=== PATIENT | male | born 1935 | race Caucasian/White ===

== ENCOUNTER 2016-04-02 15:23 | Inpatient (IN) | payer OTHER ==
--- NOTE | 2016-04-02 17:16 | Diag Imaging Result Document ---
PROCEDURE NAME: CHEST-PORTABLE - 04/02/2016 SINGLE FRONTAL RADIOGRAPH OF THE CHEST: COMPARISON: 03/18/2016. FINDINGS: Right PICC line is in approximately stable position. There is a small calcified granuloma at the left lung base. The lungs are essentially clear, otherwise. There is no definite pleural fluid collection. The patient is rotated toward the right. Cardiac silhouette is somewhat prominent but stable. IMPRESSION: Stable chest.
[2016-04-02 17:24] LABS: MANUAL DIFF NEEDED? NO
[2016-04-02 17:24] LABS: URINE SOURCE CATH
[2016-04-02 17:32] LABS: BASO% 0.2 % (0.0-0.8); EOS# 0.07 X1000 (0.0-0.7); EOS% 0.8 % (0.0-10.0); HEMATOCRIT 35.6 % (42.0-52.0); IMM GRAN# 0.03 X1000 (0.0-0.04); IMM GRAN% 0.4 % (0.0-0.5); LYMPH# 1.76 X1000 (1.2-3.4); LYMPH% 20.6 % (20.5-51.1); MCH 30.5 PG (27-31); MCHC 33.7 g/dL (33-37); MCV 90.6 FL (81-99); MONO# 0.91 X1000 (0.11-0.59); MONO% 10.6 % (1.7-9.3); MPV 9.9 FL (7.4-10.4); NEUT% 67.4 % (42.2-75.2); PLT 212 X1000 (130-400); RBC 3.93 XMIL (4.7-6.1)
[2016-04-02 17:32] LABS: BILIRUBIN URINE NEGATIVE (NEGATIVE); BLOOD URINE NEGATIVE (NEGATIVE); COLOR YELLOW; GLUCOSE URINE NEGATIVE (NEGATIVE); LEUKOCYTES URINE TRACE (NEGATIVE); NITRITE URINE NEGATIVE (NEGATIVE); PROTEIN URINE NEGATIVE (NEGATIVE); SP GRAVITY URINE 1.013; TURBIDITY URINE CLEAR (CLEAR); UROBILINOGEN URINE NORMAL (NORMAL)
[2016-04-02 17:33] LABS: URINE MICRO REVIEW NEEDED? YES
[2016-04-02 17:36] LABS: UR EPITHELIAL CELLS >10 /HPF (<10); URINE BACTERIA NEGATIVE /HPF; URINE CULTURE NEEDED? YES; URINE RBC <10 /HPF (<10)
[2016-04-02 17:52] LABS: ALBUMIN 3.5 g/dL (3.5-5.0); CALCIUM 9.2 mg/dL (8.8-10.2); POTASSIUM 4.5 mmol/L (3.5-5.1); TOTAL BILIRUBIN 0.64 mg/dL (0.20-1.00); TOTAL PROTEIN 6.3 g/dL (6.3-8.3)
--- NOTE | 2016-04-02 17:53 | ED EKG INTERP ---
EKG Interpretation - EKG Time of EKG reading by physician:: 17:04 EKG Read and Signed by:: Verna Black EKG Interpretation (*Must complete 3 of following elements*): Abnormal Rate: 106 Rhythm: unsual P axis, possible ectopic atrial tachycardia QRS: normal ST Wave: non-specific ST changes <Lucho Malin - Last Filed: 04/02/16 17:52> Attestation - Scribe Verification/Attestation Scribe:: Lucho Malin Acting as Scribe for:: Verna Black Scribe documention review:: This chart was documented by a scribe and accurately reflects the service the provider performed and the decisions made by the provider. <Lucho Malin - Last Filed: 04/02/16 17:52> Physician Attestation - Physician Attestation I, the provider, attest to the following statement:: Verna Black Physician documentation Attestation:: This documentation recorded by the scribe accurately reflects the service I personally performed and the decisions made by me. <Lucho Malin - Last Filed: 04/02/16 17:52> - Physician Attestation I, the provider, attest to the following statement:: Daphney Dietrich Physician documentation Attestation:: This documentation recorded by the scribe accurately reflects the service I personally performed and the decisions made by me. <Daphney Dietrich - Last Filed: 04/02/16 18:44>
[2016-04-02 17:55] LABS: URINE CASTS NONE SEEN; URINE CRYSTALS NONE SEEN
[2016-04-02 17:56] LABS: URINE SMALL ROUND CELLS NONE SEEN
[2016-04-02] MEDS ORDERED: NS 500 ML IV ONE (18:10)
--- NOTE | 2016-04-02 20:28 | PROVIDER DOCUMENTATION ---
HPI-Abdominal Pain/GI Problem - General Chief Complaint: N/V/D Stated Complaint: UPPER ABD PAIN,DIARRHEA Time Seen by Provider: 04/02/16 16:22 Source: patient, family Allergies/Adverse Reactions: Patient Allergies Allergy/AdvReac Type Severity Reaction Status Date / Time ciprofloxacin Allergy HIVES Verified 04/02/16 16:29 Home Medications: Home Medication List Medication Instructions Recorded Confirmed Last Taken Type Apixaban [Eliquis] 2.5 mg PO BID 03/26/16 04/02/16 Unknown History Carvedilol 6.25 mg PO BID 03/26/16 04/02/16 Unknown History Citalopram [Celexa] 40 mg PO DAILY 03/26/16 04/02/16 Unknown History Donepezil HCl 10 mg PO DAILY 03/26/16 04/02/16 Unknown History Metformin HCl 1,000 mg PO BID 03/26/16 04/02/16 Unknown History Ranitidine [Zantac] 150 mg PO DAILY 03/26/16 04/02/16 Unknown History SIMVAstatin [Zocor] 40 mg PO QHS 03/26/16 04/02/16 Unknown History - History of Present Illness-ABD Nature of Presenting Problems: 80 yo with urostomy after bladder removal for bladder cancer. Has hx of recurrent infections and recently received several week course of IV antibiotics - zosyn to ertapenem. Recently stopped IV antibiotics and now complaining of increasing RUQ abdominal pain. Family also concerned about patients inability to manage on his own. Abdominal Pain Onset Location: reports: RUQ Quality of Pain: reports: aching Severity in ED: reports: moderate Onset/Duration: reports: 1 week ago Timing: reports: still present Activities at Onset: reports: none Exposure to sick contacts?: No Associated Symptoms: reports: chest pain, diarrhea, nausea, vomiting Last BM: this morning (loose stool daily) Dark Stools Present?: reports: black (occasionally dark) Emesis Description: reports: other (one episode daily) Review of Systems - Adult - REVIEW OF SYSTEMS - ADULT Constitutional: reports: fatique, other (weakness) Eyes: reports: no symptoms reported Ears, Nose, Mouth & Throat: reports: no symptoms reported Cardiovascular: reports: irregular heart rate Respiratory: reports: no symptoms reported Gastrointestinal: reports: abdominal pain (RUQ), diarrhea, nausea, vomiting Genitourinary: reports: see HPI Musculoskeletal: reports: no symptoms reported Integumentary: reports: no symptoms reported Neurological: reports: other (weakness) Psychiatric: reports: no symptoms reported Past History - Adult - PAST MEDICAL HISTORY-ADULT Review of Records: reports: Old Records Reviewed Major Childhood Illnesses: reports: denies history Cardiovascular: reports: A-Fib (on eliquis), HTN Respiratory: reports: denies history Gastrointestinal: reports: denies history Obstetrical/Gynecological: reports: denies history Genitourinary: reports: other (urostomy) Musculoskeletal: reports: denies history Neurological: reports: dementia Endocrine/Immune: reports: Diabetes Other Conditions: reports: denies history - IMMUNIZATION STATUS Childhood Immunizations: See Nurse Assessment Flu Vaccine: See Nurse Assessment - FAMILY HISTORY Family History: reviewed, not pertinent Physical Exam-General - PHYSICAL EXAM-ADULT Initial Vital Signs Reviewed: Yes - CONSTITUTIONAL General Appearance: alert, no apparent distress - EYES Eyes: PERRL/EOMI - HEAD, EARS, NOSE, MOUTH & THROAT HENMT: normocephalic/atraumatic, moist mucous membranes, normal ENT inspection - NECK Neck: non-tender, supple, normal inspection - RESPIRATORY Respiratory: chest non-tender, lungs clear, normal breath sounds - CARDIOVASCULAR Cardiovascular: regular rate, rhythm, no edema, no gallop, no JVD - GASTROINTESTINAL (ABDOMEN) Abdominal Exam: normal bowel sounds, tenderness (RUQ an depigastric), other ( ureterostomy RLQ). negative: distended, guarding, rigid, hepatomegaly - GENITOURINARY Male Genitalia: deferred Rectal Exam: deferred Hemoccult Exam: heme positive stool - MUSCULOSKELETAL Back Exam: normal inspection, no CVA tenderness Extremity: normal range of motion, non-tender, no pedal edema - NEUROLOGIC Neurologic: no motor/sensory deficits (oriented x2) Progress - PLAN OF CARE/RESULTS Progress/Plan/Lab Results: Laboratory Tests 04/02/16 04/02/16 04/02/16 17:13 17:15 17:15 WBC 8.55 RBC 3.93 L Hgb 12.0 L Hct 35.6 L MCV 90.6 MCH 30.5 MCHC 33.7 RDW Std Deviation 13.8 Plt Count 212 MPV 9.9 Immature Gran % (Auto) 0.4 Neut % (Auto) 67.4 Lymph % (Auto) 20.6 Jefferson % (Auto) 10.6 H Eos % (Auto) 0.8 Baso % (Auto) 0.2 Immature Gran # (Auto) 0.03 Neut # (Auto) 5.76 Lymph # (Auto) 1.76 Jefferson # (Auto) 0.91 H Eos # (Auto) 0.07 Baso # (Auto) 0.02 Sodium 135 L Potassium 4.5 Chloride 97 L Carbon Dioxide 24 L Anion Gap 14 BUN 54 H Creatinine 1.5 H Estimated GFR/1.73 m2 45 BUN/Creatinine Ratio 36 Glucose 92 Calculated Osmolality 284 Calcium 9.2 Total Bilirubin 0.64 AST 12 ALT 8 L Alkaline Phosphatase 74 Total Protein 6.3 Albumin 3.5 Globulin 2.8 Albumin/Globulin Ratio 1.3 Amylase 60 Lipase 35 Urine Source CATH Urine Color YELLOW Urine Turbidity CLEAR Urine pH 6.0 Ur Specific [place] 1.013 Urine Protein NEGATIVE Ur Glucose (Stick) NEGATIVE Ur Ketones (Stick) NEGATIVE Urine Blood NEGATIVE Urine Nitrite NEGATIVE Urine Bilirubin NEGATIVE Urobilinogen Dipstick NORMAL Urine Leukocytes TRACE A Urine WBC (Auto) 10-20 A Urine RBC (Auto) <10 U Epithel Cells (Auto) >10 A Urine Bacteria (Auto) NEGATIVE Urine Crystals NONE SEEN Small Round Cells NONE SEEN Urine Casts NONE SEEN Urine Yeast-like Cells PRESENT Orders Category Date Time Status Saline Loc DIRECTED Care 04/02/16 16:39 Active NPO Diet 04/02/16 16:39 Active ABDOMEN/PELVIS W/O CONTRAST [CT] Stat Exams 04/02/16 18:08 Taken CHEST-PORTABLE [RAD] Stat Exams 04/02/16 16:42 Draft AMYLASE [CHEM] Stat Lab 04/02/16 17:15 Completed C DIFF TOXIN [STOOL] Stat Lab 04/02/16 18:28 Completed CBC WITH ELECTRONIC DIFF [HEME] Stat Lab 04/02/16 17:15 Completed COMPREHENSIVE METABOLIC PANEL [CHEM] Stat Lab 04/02/16 17:15 Completed LIPASE [CHEM] Stat Lab 04/02/16 17:15 Completed OCCULT BLOOD SCREENING [STOOL] Stat Lab 04/02/16 18:28 Completed OVA AND PARASITE W/TRICHROME [STOOL] Stat Lab 04/02/16 18:28 Received STOOL CULTURE [RM] Routine Lab 04/02/16 18:28 Received URINALYSIS W/POSS RFLX CULT [URINALYSIS] Stat Lab 04/02/16 17:13 Completed URINE CULTURE [RM] Routine Lab 04/02/16 17:59 Received URINE MANUAL MICROSCOPIC [URINALYSIS] Stat Lab 04/02/16 17:13 Completed WBC STOOL [STOOL] Stat Lab 04/02/16 18:28 Completed 0.9% Sodium Chloride Inj [Ns] 500 ml Med 04/02/16 18:10 Discontinued IV 250 mls/hr EKG [EKG] Stat Ther 04/02/16 16:41 Ordered Laboratory Tests 04/02/16 04/02/16 04/02/16 17:13 17:15 17:15 WBC 8.55 RBC 3.93 L Hgb 12.0 L Hct 35.6 L MCV 90.6 MCH 30.5 MCHC 33.7 RDW Std Deviation 13.8 Plt Count 212 MPV 9.9 Immature Gran % (Auto) 0.4 Neut % (Auto) 67.4 Lymph % (Auto) 20.6 Jefferson % (Auto) 10.6 H Eos % (Auto) 0.8 Baso % (Auto) 0.2 Immature Gran # (Auto) 0.03 Neut # (Auto) 5.76 Lymph # (Auto) 1.76 Jefferson # (Auto) 0.91 H Eos # (Auto) 0.07 Baso # (Auto) 0.02 Sodium 135 L Potassium 4.5 Chloride 97 L Carbon Dioxide 24 L Anion Gap 14 BUN 54 H Creatinine 1.5 H Estimated GFR/1.73 m2 45 BUN/Creatinine Ratio 36 Glucose 92 Calculated Osmolality 284 Calcium 9.2 Total Bilirubin 0.64 AST 12 ALT 8 L Alkaline Phosphatase 74 Total Protein 6.3 Albumin 3.5 Globulin 2.8 Albumin/Globulin Ratio 1.3 Amylase 60 Lipase 35 Urine Source CATH Urine Color YELLOW Urine Turbidity CLEAR Urine pH 6.0 Ur Specific [place] 1.013 Urine Protein NEGATIVE Ur Glucose (Stick) NEGATIVE Ur Ketones (Stick) NEGATIVE Urine Blood NEGATIVE Urine Nitrite NEGATIVE Urine Bilirubin NEGATIVE Urobilinogen Dipstick NORMAL Urine Leukocytes TRACE A Urine WBC (Auto) 10-20 A Urine RBC (Auto) <10 U Epithel Cells (Auto) >10 A Urine Bacteria (Auto) NEGATIVE Urine Crystals NONE SEEN Small Round Cells NONE SEEN Urine Casts NONE SEEN Urine Yeast-like Cells PRESENT - CT/MRI 1 CT Study: Abdomen (stranding and thickening aroud GB adn stomach - consider cholecystitis) Impression: Abnormal - CONSULTS/PCP/HOSPITALIST Notification #1 *Consult/PCP/Hospitalist*: [place] Reason/Comments: with N/V/abdominal pain, weakness will admit Consult Disposition: Admit - CHANGE OF SHIFT REPORT (ED Provider) Tentative Impression of Patient: RUQ pain- possible cholecystitis, weakness- may need rehab Departure - Departure Time of Disposition Order: 21:00 DIAGNOSIS: Cholecystitis Disposition: ADMITTED INPATIENT 09 Certified Medical Emergency: Emergent Condition: Fair
[2016-04-02] MEDS ORDERED: NS 1,000 ML IV ONE (21:59)
[2016-04-02 22:44] LABS: INR 1.03; PROTIME 10.9 Seconds (9.2-11.7); PTT 27.9 Seconds (22.0-36.0)
[2016-04-03] MEDS ORDERED: TYLENOL PO PRN (00:48)
[2016-04-03] MEDS ORDERED: ZOFRAN IV PRN (00:48)
[2016-04-03] MEDS ORDERED: NS 1,000 ML IV SCH (00:48)
[2016-04-03] MEDS ORDERED: MORPHINE IV PRN (00:48)
[2016-04-03] MEDS: INVANZ 1 GM/NS 50 ML IV SCH (02:01)
[2016-04-03] MEDS: SODIUM CHLORIDE 0.9% INJ SCH (02:01)
[2016-04-03] MEDS: PROTONIX IV SCH (02:01)
[2016-04-03] MEDS: D50W SYRINGE ONE ×2 (02:08→06:14)
--- NOTE | 2016-04-03 02:11 | HISTORY AND PHYSICAL ---
PRIMARY CARE PROVIDER: Sophia Gilman MD CHIEF COMPLAINT: Right upper quadrant pain with nausea, vomiting, and diarrhea. HISTORY OF PRESENT ILLNESS: Mr. Lovell is an 80-year-old male with a history of bladder cancer status post cystectomy. The patient currently has a urostomy. He was just recently discharged from the hospital on 03/18/2016 for treatment of sepsis secondary to a urinary tract infection with ESBL E. coli. The patient was discharged home on Invanz 1 g IV every 24 hours. The patient was presenting to outpatient daily for this IV infusion. He was also newly diagnosed with atrial fibrillation during this last hospital visit and was placed on Eliquis for stroke prophylaxis. The patient reports that since his initial arrival and admission to the hospital back on 03/11/2016 that he has had right upper quadrant pain and intermittent nausea, vomiting, and diarrhea. He describes the pain as intermittent, achy in nature. The patient also reports that this pain tends to get worse when eating fatty foods such as fried chicken. He also reports decreased appetite secondary to nausea. His daughter also states that he has not had continuous diarrhea, though has had problems with constipation, he will take something to relieve this and then has several loose stools. She did also report that his stool has been dark, almost black in color. She denies the use of [id number] Pepto-Bismol or iron tablets. His daughter at the bedside states that he was discharged home from the hospital, that he has not had the assistance of home health since his discharge. She states that he has just continued to be weak since discharge and that yesterday this was at its worse. He was having trouble even ambulating with this walker. The patient denies any dizziness, though just reports that he feels weak. The patient's daughter did state that the patient did get up from a standing position and fall a few days ago. She denies any loss of consciousness though did state the patient hit his head as well as he has a skin tear to his left forearm. The patient does have a small hematoma as well as abrasion present on the back of his head at this time. She denies any falls except for this one episode. The patient denies any chest pain though did report some shortness of breath over the last few days with exertion. The patient denies any change in the color of his urine or hematuria. He denies any pain, numbness or tingling in extremities. In the ER, the patient did receive a CT abdomen and pelvis which did show presence of gallstones and very mild stranding in the region of the gallbladder neck and pylorus of the stomach. At this time, we will admit the patient for further evaluation of his cholelithiasis. REVIEW OF SYSTEMS: A 14-point review of systems was conducted with the patient, and all were negative except for pertinent positives as mentioned above in HPI. PAST MEDICAL HISTORY: 1. Bladder cancer status post cystectomy. 2. Coronary artery disease with stent placement. 3. Dementia. 4. Diabetes mellitus type 2. 5. Gastroesophageal reflux disease. 6. Hyperlipidemia. 7. Hypertension. 8. Peripheral vascular disease. 9. History of diabetic foot ulcers. 10.Recently diagnosed atrial fibrillation, currently on Eliquis. PAST SURGICAL HISTORY: 1. Cystectomy secondary to bladder cancer. 2. Appendectomy. 3. Hernia repair. 4. Left leg surgery. SOCIAL HISTORY: The patient is a former smoker. He did smoke for several years though has quit for several years as well. He currently lives at home with his family. He has no known alcohol or illicit drug use. ALLERGIES: The patient has no known allergies. HOME MEDICATIONS: 1. Invanz 1 g IV every 24 hours. 2. Eliquis 2.5 mg p.o. b.i.d. 3. Carvedilol 6.25 mg p.o. b.i.d. 4. Celexa 40 mg p.o. daily. 5. Donepezil 10 mg p.o. daily. 6. Metformin 1000 mg p.o. b.i.d. 7. Zantac 150 mg p.o. daily. 8. Zocor 40 mg p.o. at nighttime. DIAGNOSTIC DATA AND LABORATORY RESULTS: White blood cell count 8.5, hemoglobin 12, hematocrit 35.6, platelet count 212. Sodium 135, potassium 4.5, chloride 97, bicarb 24, BUN 54, creatinine 1.5, GFR 45, glucose 92, calcium 9.2. Liver function tests are within normal limits. Troponin 0.014. Amylase 60, lipase 35. Urinalysis was obtained via urostomy, was positive for trace leukocytes, 10-12 white blood cells, though was negative for protein, ketones, blood or nitrites. Chest x-ray showed right PICC line is in approximately a stable position. There was a small calcified granuloma at the left lung base though no other acute abnormalities identified. CT scan abdomen and pelvis showed gallstones, very mild stranding in the region of the gallbladder neck and pylorus of the stomach, perhaps more concentrated around the pylorus. Consider cholecystitis versus gastritis or peptic ulcer disease. No sign of perforation. There also was a right urostomy noted. PHYSICAL EXAMINATION: VITAL SIGNS: Temperature 97.9. Heart rate 90. Respirations 16. Blood pressure is 119/53. Oxygen saturation is 98% on room air. GENERAL: The patient is a well-nourished, well-developed, pleasant, 80-year-old elderly male who was resting in the ER stretcher. He was in no acute distress, was awake, alert, and able to answer all questions appropriately. HEENT: Head is atraumatic except for a small hematoma noted to the occipital area. There is an abrasion noted here as well. The patient's daughter reports this is from the fall a few days ago. Pupils are equal, round, reactive to light, 3 mm bilaterally, and brisk. Conjunctivae were slightly pale. Oral mucosa is moist. Oropharynx is clear. NECK: Supple. Trachea midline. No JVD noted. No carotid bruits noted bilaterally upon auscultation. CARDIOVASCULAR: Normal S1, S2. No murmurs, gallops or rubs appreciated. Slightly irregular rhythm with a rate at 90. PULMONARY: The patient has symmetrical expansion bilaterally. Lung sounds were clear to auscultation in bilateral full samuel. ABDOMEN: Soft, nontender, nondistended. Bowel sounds were present in all four quadrants, were normoactive. The patient does have a urostomy noted in the right lower quadrant as well as a hernia noted in the left lower quadrant just left of midline. This was reducible upon examination. EXTREMITIES: No cyanosis or edema present. Pulse, motor and sensory intact in all extremities. Pedal pulses were diminished but equal bilaterally in lower extremities. Radial pulses bilaterally in upper extremities were 3+. INTEGUMENTARY: The patient's skin is pink, warm, dry and intact. No lesions or sores noted except for a skin tear noted to the patient's left forearm as well as a small abrasion noted to the occipital area of his head. The patient did have decreased skin turgor. NEUROLOGICAL: Patient is alert and oriented x3. Cranial nerves II through XII are grossly intact. ASSESSMENT AND PLAN: 1. Symptomatic cholelithiasis. For this, we will place the patient n.p.o. We have placed an order for a gallbladder ultrasound in the morning. We have also placed a consult with Dr. Boogie with Surgery and will await his evaluation and further recommendations as well. At this time, the patient is not presently reporting any pain, though we will give him morphine 2 mg every 4 hours as needed for pain control. Will continue to follow. The patient also denies any fever, body aches or chills, and his white blood cell count is within normal limits. The patient is also currently taking Invanz for previous treatment of a urinary tract infection. We will continue this as well. 2. Nausea, vomiting, diarrhea. We have placed orders for Zofran for nausea. For further evaluation of the patient's loose stools, stool studies have been placed and we are awaiting these results at this time. Will continue to follow. 3. Urinary tract infection. The patient was discharged from the hospital after being treated for an ESBL Escherichia coli urinary tract infection. He is currently still receiving Invanz 1 g IV every 24 hours. We will continue this and have placed an order for a urine culture and are awaiting those results. 4. Chronic kidney disease. The patient's creatinine is 1.5, GFR is 45. Looking back, this appears to be stable. We will avoiding any nephrotoxic medications and renally dose medications as necessary. Will continue to follow. 5. Diabetes mellitus type 2. At this time we will place the patient on a Lispro sliding stone occasional insulin since he is n.p.o. at this time. Will do pattern fingerstick blood sugars. 6. Atrial fibrillation. At this time, the patient still is in atrial fibrillation though the rate is controlled at 90. He is asymptomatic. We will continue his Eliquis and anticoagulant as prescribed. Will continue to follow. 7. Hypertension. The patient upon arrival to the ER did have some borderline hypotension at 95/69 though, after a 500 mL normal saline bolus, the patient's blood pressure has improved to 119/53. We will continue with normal saline at 100 mL per hour. They will closely monitor his hemodynamic status though the patient dyspnea on exertions have an ejection fraction of 20-25% on his most recent echocardiogram on 03/11/2016. We will continue his Coreg, though if his blood pressure is less than 110 systolically, we will hold this and continue to monitor this closely. 8. Coronary artery disease. For this, will continue the patient's medications as prescribed. Will continue his simvastatin. EKG did show what appeared to be some ST depression in V2 was possibly slightly more pronounced from his previous EKG on 03/26/2016 though this is only in one lead. The patient is not complaining of any chest pain. Troponin was 0.014. We will do some redrawal of his troponins to further evaluate this. Will continue to follow closely. The patient will be placed on the medical floor with telemetry. He will have vital signs every 6 hours. DVT prophylaxis is currently being provided with Eliquis 25 mg b.i.d. This is for renal dosing. GI prophylaxis is provided with Protonix 40 mg IV every 24 hours. Will do strict intake and output. Will await the results of his gallbladder ultrasound. We have also had placed orders for orthostatic vital signs and will be awaiting these results at this time. Further orders and recommendations pending hospital course, diagnostic studies, and physician evaluation. Dictated by LEIDY Morejon for Kasie Dubon MD
--- NOTE | 2016-04-03 05:43 | EKG Report ---
Test Performed on : 04/02/2016 5:04:31 PM Test Reason : abdominal pain Blood Pressure : / mmHG Vent. Rate : 106 BPM Atrial Rate : 106 BPM P-R Int : 000 ms QRS Dur : 116 ms QT Int : 356 ms P-R-T Axes : -35 005 160 degrees QTc Int : 472 ms Unusual P axis, possible ectopic atrial tachycardia. with undetermined rhythm irregularity. 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
[2016-04-03 06:28] LABS: MANUAL DIFF NEEDED? NO
[2016-04-03 06:32] LABS: BASO% 0.5 % (0.0-0.8); EOS# 0.14 X1000 (0.0-0.7); EOS% 2.2 % (0.0-10.0); HEMATOCRIT 32.6 % (42.0-52.0); HEMOGLOBIN 10.8 g/dL (14.0-18.0); LYMPH# 1.47 X1000 (1.2-3.4); LYMPH% 23.4 % (20.5-51.1); MCH 30.1 PG (27-31); MCHC 33.1 g/dL (33-37); MCV 90.8 FL (81-99); MONO# 0.64 X1000 (0.11-0.59); MONO% 10.2 % (1.7-9.3); MPV 9.9 FL (7.4-10.4); NEUT% 63.7 % (42.2-75.2); PLT 196 X1000 (130-400); RBC 3.59 XMIL (4.7-6.1)
[2016-04-03 06:48] LABS: CALCIUM 8.5 mg/dL (8.8-10.2)
--- NOTE | 2016-04-03 07:16 | CONSULTATION ---
DATE OF CONSULTATION: 04/03/2016 REQUESTING PHYSICIAN: Dr. Dubon. REASON FOR CONSULTATION: Right upper quadrant pain with nausea and vomiting. HISTORY OF PRESENT ILLNESS: An 80-year-old, male with a history of bladder cancer status post cystectomy with ileal conduit. She is also status post large ventral hernia repair with recurrent lower abdominal ventral hernia. He was recently treated on 03/18/2016 for sepsis secondary to urinary tract infection. He was discharged on Invanz. He was presenting to the outpatient setting for IV infusion. He had also been recently diagnosed with atrial fib and had been started on Eliquis for stroke prophylaxis. He initially told the hospital on his admission back earlier this month that he had some right upper quadrant pain and intermittent nausea and vomiting, and instead it had gotten worse with fatty foods and fried chicken. Since his discharge he apparently had been at home and had progressively gotten weaker to the point where he is having trouble ambulating. There is also apparently a report that he fell during his time at home. In the ER he did have a CT scan that showed the presence of gallstones and some mild stranding in the region the gallbladder, but an ultrasound at this time is pending. He is currently denying any kind of abdominal pain. PAST MEDICAL HISTORY: 1. Bladder cancer. 2. Coronary artery disease. 3. Dementia. 4. Diabetes mellitus type 2. 5. Gastroesophageal reflux disease. 6. Hyperlipidemia. 7. Hypertension. 8. Peripheral vascular disease. 9. History of diabetic foot ulcers. 10. Recently diagnosed atrial fibrillation. PAST SURGICAL HISTORY: 1. Bladder resection with ileal conduit. 2. Appendectomy. 3. Large ventral hernia repair. 4. Left leg surgery. ALLERGIES: None. HOME MEDICATIONS: 1. Invanz. 2. Eliquis. 3. Carvedilol. 4. Celexa. 5. Benazepril. 6. Metformin. 7. Zantac. 8. Zocor. SOCIAL HISTORY: Former smoker. FAMILY HISTORY: Reviewed with patient, noncontributory. REVIEW OF SYSTEMS: A full 10 point review of systems obtained, negative except as specified in HPI. PHYSICAL EXAMINATION: Vital Signs: The patient is currently afebrile. Temperature 98.7 degrees, pulse is irregular at 105. Respiratory rate nonlabored at 18. Blood pressure 105/69, O2 saturation 98% on room air. General: No acute distress. Resting comfortably in bed. male looks stated age. HEENT: Normocephalic, atraumatic except for a small hematoma noted to the occipital area. Pupils equal, round, react to light. Mucous membranes moist. Oropharynx benign. Neck: Supple. Trachea midline. Cardiovascular: Irregularly irregular. Lungs: Grossly clear. Abdomen: Soft, nontender. There is a functioning urostomy in the right lower quadrant. There is a large hernia noted in the midline where you could palpate previous mesh. Extremities: Moves all extremities. Neurologic: Grossly intact. Skin: No signs of jaundice. Vascular: Extremities are perfused at this time. LABORATORY: Reviewed from admission white blood cell count is normal at 8.5, hematocrit 35.6, platelet count 212,000. CMP reviewed of note, patient's bilirubin, AST, ALT, alkaline phosphatase were all within normal limits. So were his amylase and lipase. Imaging reviewed. There are some stones in his gallbladder although the stranding is very minimal. ASSESSMENT/PLAN: An 80-year-old, male with multiple medical comorbidities presenting with right upper quadrant pain. 1. Multiple medical comorbidities at this time being managed by the hospitalist service. The patient is on Eliquis for atrial fibrillation. We will defer further management of these medical comorbidities to the hospitalist service. 2. Cholelithiasis. At this time unsure if patient is truly symptomatic from it. He does have a history of having issues with his gallbladder, although he is currently asymptomatic. His gallbladder did not look particularly inflamed on CT scan, but his ultrasound is pending. His laboratories are not suggestive of acute inflammatory process. Patient's surgical approach will likely have to be an open cholecystectomy if surgery needed given his urostomy and his large ventral hernia with mesh. This would probably preclude a laparoscopic approach. At this time patient is also on Eliquis which we would need to hold for least 5 days. At this time given patient's comorbidities, we will likely manage this patient nonoperatively unless the symptoms continue and persist, then we have a better indication that he has cholecystitis. I will continue to follow up with you while the patient is in the hospital.
--- NOTE | 2016-04-03 09:45 | Diag Imaging Result Document ---
PROCEDURE NAME: US GB < RUQ (LIMITED) - 04/03/2016 RIGHT UPPER QUADRANT ABDOMINAL ULTRASOUND: COMPARISON: None available. FINDINGS: There is an immobile echogenic focus with no shadowing associated with the gallbladder wall that likely represents adherent sludge or a polyp. It measures up to 6.5 mm in the greatest dimension. No definite shadowing stone can be identified in the gallbladder lumen. No gallbladder wall thickening or pericholecystic fluid is identified. The common bile duct is within normal limits. Sonographic Lynn's sign was reported to be negative. The liver, visualized pancreas, aorta, IVC, and right kidney are grossly unremarkable. IMPRESSION: 1. Adherent non-shadowing sludge in the gallbladder lumen versus a prominent gallbladder wall polyp. Follow-up ultrasound is recommended to assure stability. 2. No gallbladder wall thickening or pericholecystic fluid identified.
[2016-04-03] MEDS: COREG PO SCH ×2 (10:09→22:18)
[2016-04-03] MEDS: ELIQUIS PO SCH ×2 (10:09→22:18)
[2016-04-03] MEDS: ARICEPT PO SCH (10:09)
[2016-04-03] MEDS: CELEXA PO SCH (10:10)
--- NOTE | 2016-04-03 10:46 | Diag Imaging Result Document ---
PROCEDURE NAME: ABDOMEN/PELVIS W/O CONTRAST - 04/02/2016 CT UROGRAM WITHOUT CONTRAST: FINDINGS: There is some dependent atelectasis and fibrosis in the lung bases posteriorly. There are granulomata in the liver and spleen. There are numerous layering small stones in the gallbladder dependently. There is no definite evidence of pericholecystic fluid or gallbladder wall thickening. There is some questionable inflammatory change present between the head of the pancreas and the second portion of the duodenum. There has been postsurgical change with implantation of a mesh in the anterior abdominal wall. The colon is not distended, and there are scattered diverticulum particularly in the descending colon. There is a ventral hernia present on the right side which corresponds to the position of a right-sided ileostomy. There are vascular calcifications in the right kidney with a possible stone in the mid pole. There is no evidence of hydronephrosis or ureterolithiasis. There is an ileal loop conduit. Extensive sigmoid diverticulosis is present without evidence of active diverticulitis. There is no evidence of free fluid. There are penile implants. IMPRESSION: 1. Cholelithiasis. 2. Postsurgical changes. 3. The possibility of duodenitis, groove pancreatitis, or even of peptic ulcer disease cannot be excluded. Clinical correlation is suggested. 4. Diverticulosis coli.
--- NOTE | 2016-04-03 16:34 | PROGRESS NOTE ---
DATE: 04/03/2016 SUBJECTIVE: This patient states that he is feeling better. He is not complaining about abdominal pain at this moment. He denies nausea, vomiting, diarrhea, or constipation. Also, this patient is n.p.o. I will start this patient on clear liquid diet. OBJECTIVE: Vital Signs: Temperature 98.5, pulse 73, respiratory rate 18, blood pressure 100/58, oxygen saturation 99 on room air. HEENT: Head normocephalic. No trauma. PERRLA. Neck: Supple. No JVD. No masses. Central trachea. Cardiovascular: Slightly irregular rhythm. Chest: Clear to auscultation. No wheezing. No rales. Abdomen: Soft, nontender, nondistended. Positive bowel sounds. This patient has a urostomy noted in the right lower quadrant and he has a hernia at the level of the left lower quadrant, it does not look incarcerated. Extremities: No edema. No cyanosis. Neurological: The patient is alert and oriented x3. No focal deficits. Skin: This patient has a small tear noted on the left forearm and is also a small lesion noted at the level of the occipital area of his head. LABORATORY: WBC 6.2, hemoglobin 10.8, hematocrit 32.6, platelet 196,000. Sodium 137, potassium 4, chloride 101, bicarbonate 25, BUN 49, creatinine 1.4, glucose 50, calcium 8.5. Troponins negative. ASSESSMENT AND PLAN: 1. Possible cholelithiasis, this patient at this moment is not complaining of pain. Surgery Department evaluated this patient and they will follow this patient along with us. This patient had an ultrasound done today that showed an adherent non shadowing sludge in the gallbladder lumen versus a prominent gallbladder wall polyp and they recommended any ultrasound as a follow up. No gallbladder wall thickening or pericolic cystic fluid identified. This patient at this moment is not complaining of abdominal pain. Lynn's sign is negative. We will continue to monitor. I will start this patient on a diet. 2. Nausea, vomiting and diarrhea. Apparently, these have been stable. He is not complaining of nausea, vomiting at this moment. 3. Urinary tract infection. This patient has been discharged from the hospital after being treated for extended spectrum beta lactamase (ESBL) E-coli urinary tract infection. He is currently receiving Invanz 1 g every 24 hours. We will continue with the same treatment. 4. Chronic kidney disease. Stable, this is his baseline. We will continue with the same management. 5. Type 2 diabetes. This patient is on a sliding scale. He had an episode of hypoglycemia today. I will start his diet. 6. Hypertension. Continue with the same management. The blood pressure is stable. 7. History of coronary artery disease. This patient is not complaining of chest pain or shortness of breath at this moment. Troponins have been negative. We will continue to monitor.
[2016-04-03] MEDS: HUMALOG SUBQ SCH ×2 (17:52→22:18)
[2016-04-03] MEDS ORDERED: ZOCOR PO SCH (21:00)
[2016-04-04] MEDS: INVANZ 1 GM/NS 50 ML IV SCH (02:05)
[2016-04-04] MEDS: SODIUM CHLORIDE 0.9% INJ SCH (02:05)
[2016-04-04] MEDS: PROTONIX IV SCH (02:06)
[2016-04-04] MEDS ORDERED: D50W SYRINGE ONE (05:56)
[2016-04-04] MEDS: HUMALOG SUBQ SCH ×2 (06:04→11:55)
[2016-04-04 06:30] LABS: MANUAL DIFF NEEDED? NO
[2016-04-04 06:47] LABS: BASO% 0.2 % (0.0-0.8); EOS# 0.18 X1000 (0.0-0.7); EOS% 3.9 % (0.0-10.0); HEMATOCRIT 32.2 % (42.0-52.0); HEMOGLOBIN 10.5 g/dL (14.0-18.0); LYMPH# 1.12 X1000 (1.2-3.4); LYMPH% 24.1 % (20.5-51.1); MCH 30.5 PG (27-31); MCHC 32.6 g/dL (33-37); MCV 93.6 FL (81-99); MONO# 0.46 X1000 (0.11-0.59); MONO% 9.9 % (1.7-9.3); MPV 10.1 FL (7.4-10.4); NEUT% 61.9 % (42.2-75.2); PLT 206 X1000 (130-400); RBC 3.44 XMIL (4.7-6.1)
--- NOTE | 2016-04-04 06:48 | PROGRESS NOTE ---
DATE: 04/04/2016 SUBJECTIVE: The patient is doing well with no major issues. Ultrasound reviewed showed stones versus a polyp. No signs of cholecystitis. The patient is without major issues. He has tolerated his clear liquid diet. OBJECTIVE: Vital Signs: Patient is currently afebrile. His vital signs have been stable. General: No acute distress. Alert, interactive male looks stated age. HEENT: Normocephalic, atraumatic. Pupils are equally round, react to light. Mucous membranes moist. Oropharynx benign. Neck: Supple. Trachea midline. Cardiovascular: Regular rate and rhythm. Lungs: Grossly clear. Abdomen: Soft, nontender, nondistended. Extremities: Moves all extremities. Neurologic: Grossly intact. Skin: No signs of jaundice. Vascular: All extremities perfused. LABORATORY: Labs are currently pending. RADIOLOGY: Reports reviewed and ultrasound reviewed of the right upper quadrant. ASSESSMENT AND PLAN: An 80-year-old male with cholelithiasis versus polyps Cholelithiasis: At this time, patient seems to be asymptomatic. He may or may not have a polyp versus a stone. At this time, he is not symptomatic from it, so we will hold off on surgery. I could see the patient as an outpatient and evaluate the patient for possible cholecystectomy versus repeat ultrasound. He is on Eliquis and we will need to hold it for at least 5 days prior to surgery. Given his lack of symptoms at this time, we will hold off. I will be available if needed. I appreciate the consult.
[2016-04-04 07:15] LABS: CALCIUM 8.4 mg/dL (8.8-10.2)
[2016-04-04] MEDS: CELEXA PO SCH (09:59)
[2016-04-04] MEDS: COREG PO SCH (09:59)
[2016-04-04] MEDS: ELIQUIS PO SCH (09:59)
[2016-04-04] MEDS: ARICEPT PO SCH (09:59)
--- NOTE | 2016-04-04 13:46 | DISCHARGE SUMMARY ---
ADMISSION DATE: 04/02/2016 DISCHARGE DATE: 04/04/2016 DISCHARGE DIAGNOSES: 1. Abdominal pain, resolved. The patient was admitted at the beginning with a possible diagnosis of cholelithiasis. That has been ruled out. 2. Nausea, vomiting, and diarrhea, resolved. 3. Urinary tract infection. This patient was discharged from the hospital after being treated for ESBL E. coli urinary tract infection. He is currently receiving Invanz 1 g IV q.24 h., and as per the family, he needs to continue with this medication until next Wednesday or . We will provide the dose of Invanz today, and then he can be discharged. 4. Chronic kidney disease. This is chronic and stable. Continue monitoring. 5. Type 2 diabetes. 6. Atrial fibrillation. 7. Hypertension. 8. History of coronary artery disease. HOSPITAL COURSE: Mr. Lovell is an 80-year-old male with a history of bladder cancer status post cystectomy. The patient currently has a urostomy. He was recently discharged from this hospital on 03/18/2016 secondary to sepsis for urinary tract infection with ESBL E. coli. He is being discharged home with Invanz 1 g IV q.24 h. I believe this is going to end next Wednesday or . This patient has been presenting as an outpatient daily for his IV treatment. Also, he has a new diagnosis of atrial fibrillation during the previous hospitalization, and he was placed on Eliquis for stroke prophylaxis. The patient was admitted at this opportunity with a chief complaint of right upper quadrant pain associated with nausea, vomiting, diarrhea. He has been admitted to this hospital, and he has been placed on IV fluids and medications for the nausea and vomiting. Also, we continued with the Invanz that he was placed on for outpatient treatment. The patient was evaluated by Surgery multiple times, and also he had an abdominal ultrasound and CT scan. The ultrasound showed a possibility of sludge in the gallbladder lumen versus a prominent gallbladder wall polyp. Dr. Boogie from Surgery evaluated this patient, and today , 04/04/2016, he states that this patient may or may not have a polyp versus a stone, but at this time the patient is not symptomatic, so he is not going to do any kind of surgery. He will evaluate as an outpatient for the possibility of cholecystectomy versus repeat ultrasound. If this patient is going to get a cholecystectomy in the future, his Eliquis should be stopped at least 5 days prior to the surgery. This patient was improving on a daily basis. He is not complaining of nausea or vomiting. He is tolerating p.o. 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 Boogie in 1-2 weeks to decide further treatment. DISCHARGE PHYSICAL EXAM: Vital signs: Temperature 98.2, pulse 81, respiratory rate 16, blood pressure 120/64, oxygen saturation 96 on room air. HEENT: Head normocephalic, no trauma, MEENA. Neck: Supple, no JVD, no masses, central trachea. Cardiovascular: Slightly irregular rhythm. Chest: Clear to auscultation, no wheezing, no rales. Abdomen: Soft, nontender , nondistended, positive bowel sounds. This patient has a urostomy noted on the right lower quadrant, and he has a hernia at the level of the left lower quadrant. It does not look incarcerated. Extremities: No edema, no cyanosis. Neurological: The patient is alert and oriented x3. No focal deficits. LABORATORY: WBC 4.6, hemoglobin 10.5, hematocrit 32.2, platelets 206. Sodium 137, potassium 4, chloride 101, bicarbonate 24, BUN 29, creatinine 1.2, glucose 215, calcium 8.4. DISCHARGE MEDICATIONS: This patient will be on his home medications, no change , simvastatin 40 mg p.o. at bedtime, ranitidine 150 mg p.o. daily, metformin 1000 mg p.o. b.i.d., donepezil 10 mg p.o. daily, citalopram 40 mg p.o. daily, carvedilol 6.25 mg p.o. b.i.d., Eliquis 2.5 mg p.o. b.i.d., and Invanz 1 g IV q.24 h. Time discharging this patient 35 minutes MTDD
[2016-04-04 16:56] VITALS: BP 97/56
== END 2016-04-04 17:18 | disposition home or self-care (01) | DRG 392 ==
LOC: ED 15:23 → 4N 23:56
PROVIDERS: ATTEND Internal Medicine
DX: R19.7 Diarrhea, unspecified (principal); E11.22 Type 2 diabetes mellitus with diabetic chronic kidney disease; F03.90 Unspecified dementia, unspecified severity, without behavioral disturbance, psychotic disturbance, mood disturbance, and anxiety; N39.0 Urinary tract infection, site not specified; R11.2 Nausea with vomiting, unspecified; I12.9 Hypertensive chronic kidney disease with stage 1 through stage 4 chronic kidney disease, or unspecified chronic kidney disease; N18.9 Chronic kidney disease, unspecified; I48.91 Unspecified atrial fibrillation; I25.10 Atherosclerotic heart disease of native coronary artery without angina pectoris; S00.01XA Abrasion of scalp, initial encounter; W19.XXXA Unspecified fall, initial encounter; K21.9 Gastro-esophageal reflux disease without esophagitis; E78.5 Hyperlipidemia, unspecified; E11.51 Type 2 diabetes mellitus with diabetic peripheral angiopathy without gangrene; S51.812A Laceration without foreign body of left forearm, initial encounter; K43.2 Incisional hernia without obstruction or gangrene; Z85.51 Personal history of malignant neoplasm of bladder; Z93.6 Other artificial openings of urinary tract status; Z90.6 Acquired absence of other parts of urinary tract; Z79.01 Long term (current) use of anticoagulants; Z95.5 Presence of coronary angioplasty implant and graft; Z87.891 Personal history of nicotine dependence; Z79.899 Other long term (current) drug therapy; Z79.84 Long term (current) use of oral hypoglycemic drugs
CPT/HCPCS: 71010; 74176; 76705; 80048; 80053; 81001; 82150; 82270; 82948; 83690; 84484; 85025; 85610; 85730; 87045; 87046; 87088; 87177; 87324; 88313; 89055; 93005; C9113; J1335; J1815; J7030; J7040; S0164

== ENCOUNTER 2016-04-13 12:19 | Emergency (ER) | payer OTHER ==
[2016-04-13 12:52] LABS: MANUAL DIFF NEEDED? NO
[2016-04-13 12:57] LABS: BASO% 0.1 % (0.0-0.8); EOS# 0.02 X1000 (0.0-0.7); EOS% 0.2 % (0.0-10.0); HEMATOCRIT 35.6 % (42.0-52.0); HEMOGLOBIN 11.4 g/dL (14.0-18.0); LYMPH# 0.84 X1000 (1.2-3.4); LYMPH% 8.8 % (20.5-51.1); MCH 29.9 PG (27-31); MCV 93.4 FL (81-99); MONO# 0.61 X1000 (0.11-0.59); MONO% 6.4 % (1.7-9.3); MPV 9.3 FL (7.4-10.4); NEUT% 84.5 % (42.2-75.2); PLT 307 X1000 (130-400); RBC 3.81 XMIL (4.7-6.1)
[2016-04-13 13:24] LABS: ALBUMIN 3.6 g/dL (3.5-5.0); CALCIUM 9.4 mg/dL (8.8-10.2); POTASSIUM 5.2 mmol/L (3.5-5.1); TOTAL BILIRUBIN 0.7 mg/dL (0.20-1.00); TOTAL PROTEIN 6.6 g/dL (6.3-8.3)
--- NOTE | 2016-04-13 14:15 | PROVIDER DOCUMENTATION ---
HPI-Abdominal Pain/GI Problem - General Source: patient - History of Present Illness-ABD Nature of Presenting Problems: Patient is a 80 y/o M that presents to the ER with RLQ and LLQ pain x 3 days. He reports nausea with dry heaves but no diarrhea or fever/chills Abdominal Pain Onset Location: reports: RLQ, LLQ Pain Radiation: reports: no radiation Quality of Pain: reports: aching Severity in ED: reports: mild, moderate Onset/Duration: reports: gradual, 3 days ago Timing: reports: still present, constant Activities at Onset: reports: none Exposure to sick contacts?: No Modifying Factors: improves with: nothing Associated Symptoms: reports: nausea, vomiting. denies: back/neck pain, chest pain, diarrhea, fever/chills, genitourinary problems, malaise, muscle aches, shortness of breath Similar Symptoms Previously?: No Recently seen or treated by another doctor?: No <Lucho Malin - Last Filed: 04/13/16 14:11> <Car Egan - Last Filed: 04/13/16 15:52> - General Chief Complaint: Abdominal Pain Stated Complaint: POSS GALBLADDER ATTACK Time Seen by Provider: 04/13/16 14:11 Allergies/Adverse Reactions: Patient Allergies Allergy/AdvReac Type Severity Reaction Status Date / Time ciprofloxacin Allergy HIVES Verified 04/02/16 16:29 Home Medications: Home Medication List Medication Instructions Recorded Confirmed Last Taken Type Apixaban [Eliquis] 2.5 mg PO BID 03/26/16 04/02/16 Unknown History Carvedilol 6.25 mg PO BID 03/26/16 04/02/16 Unknown History Citalopram [Celexa] 40 mg PO DAILY 03/26/16 04/02/16 Unknown History Donepezil HCl 10 mg PO DAILY 03/26/16 04/02/16 Unknown History Metformin HCl 1,000 mg PO BID 03/26/16 04/02/16 Unknown History Ranitidine [Zantac] 150 mg PO DAILY 03/26/16 04/02/16 Unknown History SIMVAstatin [Zocor] 40 mg PO QHS 03/26/16 04/02/16 Unknown History Dicyclomine [Bentyl] 10 mg PO 4XDAY PRN PRN #20 capsule 04/13/16 Unknown Rx Polyethylene Glycol 3350 [Miralax] 17 gm PO DAILY #10 powd.pack 04/13/16 Unknown Rx Review of Systems - Adult - REVIEW OF SYSTEMS - ADULT Constitutional: denies: chills, fever Eyes: denies: decreased vision, blurred vision, double vision Ears, Nose, Mouth & Throat: denies: ear pain, sinus problem, throat pain, throat swelling Cardiovascular: denies: chest pain, palpitations, syncope Respiratory: denies: cough, shortness of breath, wheezing Gastrointestinal: reports: abdominal pain, nausea, vomiting (dry heaves) Genitourinary: denies: dysuria, hematuria, urgency Musculoskeletal: reports: no symptoms reported Integumentary: reports: no symptoms reported Neurological: reports: no symptoms reported Psychiatric: reports: no symptoms reported Endocrine: reports: no symptoms reported Hematologic/Lymphatic: reports: no symptoms reported Allergic/Immunologic: reports: no symptoms reported All Other Systems: Reviewed and Negative <Lucho Malin - Last Filed: 04/13/16 14:11> Past History - Adult - PAST MEDICAL HISTORY-ADULT Review of Records: reports: Old Records Reviewed, Nursing Assessment Review, Medications Reviewed Cardiovascular: reports: A-Fib (on eliquis), HTN Gastrointestinal: reports: GERD Genitourinary: reports: other (urostomy) Neurological: reports: dementia Endocrine/Immune: reports: Diabetes - PRIOR SURGERIES/PROCEDURES Surgical/Procedure History: reports: reviewed, not pertinent - IMMUNIZATION STATUS Childhood Immunizations: See Nurse Assessment Flu Vaccine: See Nurse Assessment - FAMILY HISTORY Family History: reviewed, not pertinent - SOCIAL HISTORY Smoking: quit greater than 1 year, cigarettes Living Situation: family <Lucho Malin - Last Filed: 04/13/16 14:11> Physical Exam-General - PHYSICAL EXAM-ADULT Initial Vital Signs Reviewed: Yes - CONSTITUTIONAL General Appearance: alert, no apparent distress - EYES Eyes: PERRL/EOMI, pink conjunctivae - HEAD, EARS, NOSE, MOUTH & THROAT HENMT: normocephalic/atraumatic, moist mucous membranes, normal ENT inspection - NECK Neck: full range of motion, normal inspection. negative: lymphadenopathy - RESPIRATORY Respiratory: lungs clear, normal breath sounds, no respiratory distress, no accessory muscle use - CARDIOVASCULAR Cardiovascular: regular rate, rhythm, no edema, no JVD - GASTROINTESTINAL (ABDOMEN) Abdominal Exam: normal bowel sounds, soft, no organomegaly, no pulsatile mass, tenderness (RLQ). negative: distended, guarding, rigid, McBurney's point tenderness, Lynn's sign - MUSCULOSKELETAL Back Exam: no CVA tenderness, no vertebral tenderness Extremity: normal range of motion, normal inspection, no pedal edema - SKIN Integumentary: normal color, warm/dry - NEUROLOGIC Neurologic: grossly normal, no motor/sensory deficits - PSYCHIATRIC Psych/Mental Status: normal mood/affect, normal thought content, normal thought process, oriented x 3 <Lucho Malin - Last Filed: 04/13/16 14:11> Departure <Lucho Malin - Last Filed: 04/13/16 14:11> - Departure Time of Disposition Order: 15:49 Certified Medical Emergency: Emergent <Car Egan - Last Filed: 04/13/16 15:52> - Departure DIAGNOSIS: Abdominal pain in male Abdominal pain Qualifiers: Abdominal location: lower abdomen, unspecified Qualified Code(s): R10.30 - Lower abdominal pain, unspecified Disposition: HOME 01 Condition: Stable Additional Instructions: ED Follow Up Instructions: You have been treated by a care provider in the Emergency Department. These instructions are being provided to you so you can have an understanding of how to care for yourself upon discharge. Upon discharge from the Emergency Department, you are responsible for making arrangements for follow-up care by a physician of your choice. Take all prescribed medications as directed. Return to the Emergency Department immediately for any new or worsening symptoms. You may call the Physician Referral phone number at [phone] to obtain a list of Physicians who are taking new patients. Prescriptions: Dicyclomine [Bentyl] 10 mg PO 4XDAY PRN PRN #20 capsule PRN Reason: abdominal pain Polyethylene Glycol 3350 [Miralax] 17 gm PO DAILY #10 powd.pack Attestation - Scribe Verification/Attestation Scribe:: Lucho Malin Acting as Scribe for:: Car Egan Scribe documention review:: This chart was documented by a scribe and accurately reflects the service the provider performed and the decisions made by the provider. - Physician/ LIZBETH Attestation Patient care was provided by Advanced Practice Provider:: Yes Advanced Practice Provider:: Car Egan Advanced Practice Provider documentation review:: The Mid-level provider documentation, treatment plan and medical decision making was reviewed by the physician who agrees with all treatment and medical decision making by the MLP. <Lucho Malin - Last Filed: 04/13/16 14:11> Physician Attestation - Physician Attestation I, the provider, attest to the following statement:: Car Egan Physician documentation Attestation:: This documentation recorded by the scribe accurately reflects the service I personally performed and the decisions made by me. <Lucho Malin - Last Filed: 04/13/16 14:11>
--- NOTE | 2016-04-13 15:09 | Diag Imaging Result Document ---
PROCEDURE NAME: KUB ABDOMEN - 04/13/2016 KUB: FINDINGS: There is colonic gas, including in the rectum and there is apparent diverticulosis coli in the descending and sigmoid colon. There is a mesh over the pelvis. Numerous surgical clips are seen along the iliac vessels on both sides. There is also a mesh over the right upper quadrant with numerous surgical clips. The overall appearance of the abdomen has not changed significantly since 02/26/2016. IMPRESSION: Essentially stable KUB.
[2016-04-13] MEDS ORDERED: BENTYL PO ONE (15:48)
[2016-04-13 16:25] VITALS: BP 141/79
== END 2016-04-13 16:25 | disposition home or self-care (01) ==
LOC: ED 12:19
DX: R10.32 Left lower quadrant pain (principal); R10.31 Right lower quadrant pain; R11.2 Nausea with vomiting, unspecified; I48.91 Unspecified atrial fibrillation; I10 Essential (primary) hypertension; K21.9 Gastro-esophageal reflux disease without esophagitis; E11.9 Type 2 diabetes mellitus without complications; F03.90 Unspecified dementia, unspecified severity, without behavioral disturbance, psychotic disturbance, mood disturbance, and anxiety; Z79.899 Other long term (current) drug therapy; Z87.891 Personal history of nicotine dependence; Z79.01 Long term (current) use of anticoagulants
CPT/HCPCS: 74000; 80053; 82150; 83690; 85025

== ENCOUNTER 2016-05-05 22:00 | Inpatient (IN) ==
[2016-05-05] MEDS ORDERED: ZOFRAN ODT PO ONE (22:46)
--- NOTE | 2016-05-05 22:48 | PROVIDER DOCUMENTATION ---
HPI-General Adult - General Source: patient - History of Present Illness -Gen Adult Nature of Presenting Problems: 80 Y/O M presents to ED with Weakness. Pt family states that the pt was at home using a walker on the tile floor in the kitchen and slipped and landed on his tailbone, Pt son states that he went to a new Dr yesterday and was diagnosed with weakness. Pt son states that the dad has been Nauseous also. Location of Pain/Injury: reports: none Pain Radiation: reports: no radiation Quality of Pain: reports: none Severity: reports: mild, moderate Onset/Duration: reports: this evening Timing: reports: still present Context/Activities at Onset: reports: none Associated Symptoms: reports: nausea, weakness. denies: back/neck pain, chest pain <Fiorella Waldron - Last Filed: 05/05/16 22:42> <Jose Carlos Llanos I - Last Filed: 05/05/16 23:40> - General Chief Complaint: Fall Stated Complaint: fall/abd pain Time Seen by Provider: 05/05/16 22:19 Allergies/Adverse Reactions: Patient Allergies Allergy/AdvReac Type Severity Reaction Status Date / Time ciprofloxacin Allergy HIVES Verified 04/02/16 16:29 Home Medications: Home Medication List Medication Instructions Recorded Confirmed Last Taken Type Apixaban [Eliquis] 2.5 mg PO BID 03/26/16 05/05/16 Unknown History Carvedilol 6.25 mg PO BID 03/26/16 05/05/16 Unknown History Citalopram [Celexa] 40 mg PO DAILY 03/26/16 05/05/16 Unknown History Donepezil HCl 10 mg PO DAILY 03/26/16 05/05/16 Unknown History Metformin HCl 1,000 mg PO BID 03/26/16 05/05/16 Unknown History Ranitidine [Zantac] 150 mg PO DAILY 03/26/16 05/05/16 Unknown History SIMVAstatin [Zocor] 40 mg PO QHS 03/26/16 05/05/16 Unknown History Dicyclomine [Bentyl] 10 mg PO TID 05/05/16 05/05/16 Unknown History Glyburide 5 mg PO BID 05/05/16 05/05/16 Unknown History Meclizine HCl 0.5 - 1 tab PO Q8H PRN PRN 05/05/16 05/05/16 Unknown History Sulfamethoxazole/Trimethoprim 1 each PO BID 05/05/16 05/05/16 Unknown History [Bactrim Ds Tablet] Review of Systems - Adult - REVIEW OF SYSTEMS - ADULT Constitutional: denies: chills, fever Eyes: reports: no symptoms reported Ears, Nose, Mouth & Throat: reports: no symptoms reported Cardiovascular: reports: no symptoms reported Respiratory: reports: no symptoms reported Gastrointestinal: reports: nausea. denies: abdominal pain, diarrhea, vomiting Genitourinary: reports: no symptoms reported Musculoskeletal: reports: muscle weakness. denies: bone pain, back pain, muscle aches Integumentary: reports: no symptoms reported Neurological: reports: no symptoms reported Psychiatric: reports: no symptoms reported Endocrine: reports: no symptoms reported Hematologic/Lymphatic: reports: no symptoms reported Allergic/Immunologic: reports: no symptoms reported All Other Systems: Reviewed and Negative <Fiorella Waldron - Last Filed: 05/05/16 22:42> Past History - Adult - PAST MEDICAL HISTORY-ADULT Review of Records: reports: Old Records Reviewed, Nursing Assessment Review, Medications Reviewed, Social history reviewed & non-contributory. Major Childhood Illnesses: reports: denies history Cardiovascular: reports: A-Fib (on eliquis), HTN Respiratory: reports: denies history Gastrointestinal: reports: GERD Obstetrical/Gynecological: reports: denies history Genitourinary: reports: other (urostomy) Musculoskeletal: reports: denies history Neurological: reports: dementia Endocrine/Immune: reports: Diabetes Other Conditions: reports: denies history - PRIOR SURGERIES/PROCEDURES Surgical/Procedure History: reports: reviewed, not pertinent - IMMUNIZATION STATUS Childhood Immunizations: See Nurse Assessment Flu Vaccine: See Nurse Assessment - FAMILY HISTORY Family History: reviewed, not pertinent - SOCIAL HISTORY Smoking: non-smoker Substance Use: none/never Alcohol Use Frequency: never Living Situation: family <Fiorella Waldron Last Filed: 05/05/16 22:42> Physical Exam-General - PHYSICAL EXAM-ADULT Initial Vital Signs Reviewed: Yes - CONSTITUTIONAL General Appearance: alert, no apparent distress - EYES Eyes: PERRL/EOMI, pink conjunctivae, fundi clear, no AV nicking - HEAD, EARS, NOSE, MOUTH & THROAT HENMT: normocephalic/atraumatic, moist mucous membranes, normal ENT inspection, TMs normal, pharynx normal - NECK Neck: non-tender, full range of motion, supple, normal inspection - RESPIRATORY Respiratory: chest non-tender, lungs clear, normal breath sounds - CARDIOVASCULAR Cardiovascular: normal peripheral pulses, regular rate, rhythm - GASTROINTESTINAL (ABDOMEN) Abdominal Exam: normal bowel sounds, non tender, soft - LYMPHATIC Lymphatic: no adenopathy - MUSCULOSKELETAL Back Exam: normal inspection, no CVA tenderness, no vertebral tenderness - SKIN Integumentary: normal color, normal turgor - NEUROLOGIC 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 II-XII nml as tested <Fiorella Waldron - Last Filed: 05/05/16 22:42> Departure <Fiorella Waldron - Last Filed: 05/05/16 22:42> - Departure Time of Disposition Order: 23:40 Certified Medical Emergency: Emergent <Jose Carlos Llanos I - Last Filed: 05/05/16 23:40> - Departure DIAGNOSIS: UTI (urinary tract infection), Abdominal pain, Fall Disposition: HOME 01 Condition: Stable Referrals: None,PCP [Primary Care Provider] - Attestation - Scribe Verification/Attestation Scribe:: Fiorella Waldron Acting as Scribe for:: Jose Carlos Llanos Scribe documention review:: This chart was documented by a scribe and accurately reflects the service the provider performed and the decisions made by the provider. <Fiorella Waldron - Last Filed: 05/05/16 22:42> - Physician/ LIZBETH Attestation Patient care was provided by Advanced Practice Provider:: Yes Advanced Practice Provider documentation review:: The Mid-level provider documentation, treatment plan and medical decision making was reviewed by the physician who agrees with all treatment and medical decision making by the MLP. The physician spent face to face time with patient:: Yes Advanced Practice Provider documentation review:: The physician spent face to face time with this patient and agrees with all MLP documentation, treatment, and medical decision making by the MLP. See provider notes for further information. <Jose Carlos Llanos I - Last Filed: 05/05/16 23:40> Physician Attestation
[2016-05-05 23:04] LABS: MANUAL DIFF NEEDED? NO
[2016-05-05 23:04] LABS: URINE MICRO REVIEW NEEDED? NO; URINE SOURCE CLEAN CATCH
[2016-05-05 23:07] LABS: BILIRUBIN URINE NEGATIVE (NEGATIVE); BLOOD URINE TRACE (NEGATIVE); COLOR YELLOW; GLUCOSE URINE 300 mg/dL (NEGATIVE); LEUKOCYTES URINE LARGE (NEGATIVE); NITRITE URINE NEGATIVE (NEGATIVE); PH URINE 6.5; PROTEIN URINE TRACE mg/dL (NEGATIVE); SP GRAVITY URINE 1.013; TURBIDITY URINE CLEAR (CLEAR); UROBILINOGEN URINE NORMAL (NORMAL)
[2016-05-05 23:09] LABS: UR EPITHELIAL CELLS >10 /HPF (<10); URINE BACTERIA NEGATIVE /HPF; URINE CULTURE NEEDED? YES; URINE RBC <10 /HPF (<10)
[2016-05-05 23:12] LABS: BASO% 0.1 % (0.0-0.8); HEMATOCRIT 25.5 % (42.0-52.0); HEMOGLOBIN 8.1 g/dL (14.0-18.0); IMM GRAN# 0.02 X1000 (0.0-0.04); IMM GRAN% 0.2 % (0.0-0.5); LYMPH# 0.78 X1000 (1.2-3.4); LYMPH% 9.2 % (20.5-51.1); MCH 27.2 PG (27-31); MCHC 31.8 g/dL (33-37); MCV 85.6 FL (81-99); MONO# 0.81 X1000 (0.11-0.59); MONO% 9.6 % (1.7-9.3); MPV 8.6 FL (7.4-10.4); NEUT% 80.9 % (42.2-75.2); PLT 414 X1000 (130-400); RBC 2.98 XMIL (4.7-6.1)
[2016-05-05 23:22] LABS: ALBUMIN 3.7 g/dL (3.5-5.0); CALCIUM 9.1 mg/dL (8.8-10.2); POTASSIUM 4.9 mmol/L (3.5-5.1); TOTAL BILIRUBIN 0.44 mg/dL (0.20-1.00); TOTAL PROTEIN 6.6 g/dL (6.3-8.3)
[2016-05-05] MEDS ORDERED: ROCEPHIN IM ONE (23:35)
[2016-05-05] MEDS ORDERED: XYLOCAINE-MPF 1% INJ ONE (23:35)
[2016-05-06] MEDS ORDERED: PROTONIX IV ONE ×2 (01:23→05:10)
[2016-05-06] MEDS ORDERED: SODIUM CHLORIDE 0.9% INJ ONE ×2 (01:23→05:10)
[2016-05-06] MEDS ORDERED: NS 500 ML IV ONE (01:34)
[2016-05-06 02:49] LABS: RETIC% 2.64 % (0.8-2.1); RETIC-HE 22.5 PG (28.2-36.6)
[2016-05-06 03:03] LABS: HEMOGLOBIN A1C 6.3 % (4.8-6.0)
[2016-05-06 03:21] LABS: FERRITIN 27 ng/mL (30-400)
[2016-05-06] MEDS ORDERED: MORPHINE IV PRN (03:24)
[2016-05-06 03:39] LABS: INR 1.02; PROTIME 10.7 Seconds (9.2-11.7); PTT 24.5 Seconds (22.0-36.0)
[2016-05-06] MEDS ORDERED: ZOFRAN IV PRN (05:10)
[2016-05-06] MEDS ORDERED: PROTONIX 80 MG in NS 80 ML IV SCH (05:10)
[2016-05-06] MEDS ORDERED: TYLENOL PO PRN (05:10)
--- NOTE | 2016-05-06 05:36 | EKG Report ---
Test Performed on : 05/06/2016 01:45:20 AM Test Reason : FALL Blood Pressure : / mmHG Vent. Rate : 139 BPM Atrial Rate : 141 BPM P-R Int : 000 ms QRS Dur : 146 ms QT Int : 350 ms P-R-T Axes : 000 014 147 degrees QTc Int : 532 ms Undetermined rhythm Left bundle branch block Abnormal ECG When compared with ECG of 02-APR-2016 17:04, Current undetermined rhythm precludes rhythm comparison, needs review Left bundle branch block is now present Criteria for Inferior-posterior infarct are no longer present Unconfirmed Result
[2016-05-06] MEDS: NS 1,000 ML IV SCH ×2 (05:40→23:22)
[2016-05-06 06:01] LABS: MANUAL DIFF NEEDED? NO
[2016-05-06 06:17] LABS: BASO% 0.1 % (0.0-0.8); HEMATOCRIT 24.8 % (42.0-52.0); HEMOGLOBIN 7.7 g/dL (14.0-18.0); LYMPH# 1.06 X1000 (1.2-3.4); LYMPH% 12.8 % (20.5-51.1); MCH 26.6 PG (27-31); MCV 85.8 FL (81-99); MONO# 0.84 X1000 (0.11-0.59); MONO% 10.1 % (1.7-9.3); PLT 382 X1000 (130-400); RBC 2.89 XMIL (4.7-6.1)
[2016-05-06 06:40] LABS: CALCIUM 9.1 mg/dL (8.8-10.2); POTASSIUM 4.6 mmol/L (3.5-5.1)
[2016-05-06] MEDS: HUMALOG SUBQ SCH ×4 (07:49→23:02)
[2016-05-06] MEDS: PROTONIX 80 MG in NS 80 ML IV SCH ×2 (08:23→15:53)
[2016-05-06] MEDS: COREG PO SCH ×2 (09:00→22:00)
[2016-05-06] MEDS ORDERED: COREG PO SCH (09:00)
[2016-05-06] MEDS ORDERED: NS 500 ML ONE (10:06)
--- NOTE | 2016-05-06 10:32 | HISTORY AND PHYSICAL ---
DATE AND TIME OF HISTORY AND PHYSICAL: 05/06/2016 at 0200. PRIMARY CARE PROVIDER: Dr. Bert Sharpe in [place]. CHIEF COMPLAINT: Fall, weakness, and abdominal pain. HISTORY OF PRESENT ILLNESS: Mr. Lovell is an 80-year-old male with a history of bladder cancer status post cystectomy. He currently has a urostomy. The patient was most recently admitted for a urinary tract infection and possible cholelithiasis though that has since been ruled out. The patient's son who was at bedside did say at present the patient lives at home though he does require supervised care. He reports that the patient has had increased weakness over the past few weeks. The patient has just changed doctors from Sophia Gilman to Dr. Bert Sharpe and actually saw him in the office prior to his arrival in the ER earlier in the day. He was placed on medication of Bactrim for a urinary tract infection, and a urine culture was placed, also. The patient presented to the ER after falling while walking in his walker due to his weakness. The patient states that he did land on his bottom/tailbone area and does have a few skin tears though otherwise reports no pain. He denies hitting his head. He denies any loss of consciousness. Upon further evaluation, the patient reported dark stools recently. He has also had epigastric pain as well as nausea and did report vomiting emesis that did have a coffee ground appearance. The patient reports that he has been taking [id number] Maalox to help with his abdominal pain. Other than his reported new Bactrim medication, no new medications noted at this time, though the patient does take Aricept and Eliquis. Upon evaluation in the ER, the patient was found to be anemic with a hemoglobin of 8 and hematocrit of 25. His Hemoccult stool was positive. He did also appear to be slightly volume depleted, as well. At this time, we will admit the patient for further treatment and evaluation of his GI bleed as well as his urinary tract infection. REVIEW OF SYSTEMS: A 14-point review of systems was conducted with the patient and all were negative except for pertinent positives mentioned in the above HPI The patient denies any headache, though he does report some dizziness when going from a sitting to a standing position or a lying to a sitting position. He denies any chest pain, shortness of breath, pain, numbness, or tingling in the extremities. PAST MEDICAL HISTORY: 1. Bladder cancer status post cystectomy with current urostomy in place. 2. Coronary artery disease with stent placement. 3. Dementia. 4. Diabetes mellitus type 2. 5. Gastroesophageal reflux disease. 6. Hyperlipidemia. 7. Hypertension. 8. Peripheral vascular disease. 9. History of diabetic foot ulcers. 10.Recently diagnosed with atrial fibrillation currently on Eliquis therapy. PAST SURGICAL HISTORY: 1. Cystectomy secondary to bladder cancer and subsequent urostomy placement. 2. Appendectomy. 3. Hernia repair. 4. Left leg surgery. SOCIAL HISTORY: The patient is a former smoker. He did smoke for several years though has been quit for several years, as well. He currently lives at home with his family. He has no known alcohol or illicit drug use. ALLERGIES: The patient has no known allergies. HOME MEDICATIONS: 1. Zocor 40 mg p.o. at bedtime. 2. Zantac 150 mg p.o. daily. 3. Metformin 1000 mg p.o. b.i.d. 4. Glyburide 5 mg p.o. b.i.d. 5. Aricept 10 mg p.o. daily. 6. Celexa 40 mg p.o. daily. 7. Carvedilol 6.25 mg p.o. b.i.d. 8. Eliquis 2.5 mg b.i.d. 9. Bactrim one p.o. b.i.d. 10. Meclizine 25mg tablet p.o. q.8 h. p.r.n. for dizziness. 11. Bentyl 10 mg p.o. t.i.d. DIAGNOSTIC DATA/LABORATORY RESULTS: White blood cell count 8.4, hemoglobin 8.1 , hematocrit 25.5, platelet count 414. PT 10.7, INR 1.02, PTT 24.5. Sodium 135, potassium 4.9, chloride 95, bicarbonate 22, BUN 32, creatinine 1.6, GFR 42, glucose 264, calcium 9.1. Total bilirubin 0.44, AST 10, ALT 7, alkaline phosphatase 79. CK 38, troponin 0.027. Urinalysis obtained via clean catch was positive for trace protein, glucose, ketones, trace blood, large leukocytosis, 10-20 white blood cells, though was negative for nitrites or bacteria. Hemoccult stool was positive. EKG did show a tachycardic rhythm that is undetermined at this time, though there is a left bundle- branch block noted. Ventricular rate was 139, QTc was 532. Pending diagnostic studies at this time are a urine culture. PHYSICAL EXAMINATION: VITAL SIGNS: Temperature 98.4, heart rate 125, respirations 16, blood pressure 145/93, oxygen saturation is 98% on room air. GENERAL: Mr. Lovell is a pleasant, elderly 80-year-old male who is resting in the ER stretcher. Though he was experiencing some abdominal pain upon our examination, he was in no acute distress. He was awake, alert, and able to answer most questions of history of the present illness and past medical history though he did require some assistance from his son at bedside due to the patient does have a history of dementia. HEENT: Head is atraumatic, normocephalic. Pupils are equal, round and reactive to light, were 3 mm bilaterally and brisk. Subconjunctivae are pale. Oral mucosa is slightly dry. Oropharynx is clear. NECK: Supple, trachea midline, no JVD noted. CARDIOVASCULAR: The patient has normal S1, S2. No murmurs, gallops, or rubs appreciated with a slightly tachycardic rate that is regular. PULMONARY: The patient has symmetrical chest expansion bilaterally. Lung sounds are clear to auscultation in bilateral full samuel. ABDOMEN: Soft, though is tender in the epigastric area. The patient does have a urostomy noted as well as some abdominal surgical scars likely related to his previous cystectomy and hernia repair. Bowel sounds were present in all 4 quadrants, were normoactive. GENITOURINARY: The patient does have a urostomy noted. There is slightly cloudy yellow urine noted in urostomy bag. EXTREMITIES: No cyanosis, clubbing, or edema noted. Pulse, motor, and sensory are intact in all extremities. Pedal pulses are 3+ bilaterally. INTEGUMENTARY: The patient's skin color is pale, skin is dry and intact. There were some small skin tears noted to bilateral elbows though no other injuries or lesions noted. T NEUROLOGICAL: The patient is alert and oriented x2. Cranial nerves 2-12 are grossly intact. ASSESSMENT AND PLAN: 1. Gastrointestinal bleed. At this time, given that the patient has epigastric pain and is tender in this area, he also reports emesis with coffee ground appearance and black stools and reports that he has been taking Maalox to try to relieve his abdominal pain, I feel that this is likely more an upper GI bleed than lower. The patient does have medications of Aricept and Eliquis that could have contributed to development of his GI bleed. At this time, we will monitor his hemodynamic status closely. We will place him on a Protonix drip. We have placed a consult with Dr. Mcconnell of Gastroenterology and we will await her evaluation and further recommendations, as well. We will monitor his hemoglobin and hematocrit for any need for transfusion, and he will be n.p.o. at this time, and will continue to follow. 2. Anemia. This is likely secondary to acute blood loss from his GI bleed though we have placed an order for an anemia profile and will continue to follow. 3. Acute on chronic kidney disease. Looking back, the patient's baseline creatinine is in the range of 1.3 to 1.5. At this time, his creatinine is slightly elevated at 1.6 with a GFR of 42. This is likely secondary to fluid volume depletion as well as acute blood loss from GI bleed. We will continue with gentle fluid resuscitation and would avoid nephrotoxic medications and continue to follow. 4. Urinary tract infection. At this time, we have placed the patient on Rocephin 1 g IV q.24 h. and we have placed an order for a urine culture and will await those results and will continue to follow. 5. Hypertension. At this time, we have continued the patient's carvedilol, though we will closely monitor his blood pressure given his current GI bleed, and we will hold these if the patient becomes hypotensive. 6. Hyperlipidemia. Will continue the patient's Zocor and will continue to follow. 7. Diabetes mellitus type 2. Given the patient has some fluid volume depletion as well as acute on chronic kidney disease, we will hold his regular diabetic medications and place him on a low- dose sliding scale lispro insulin and will continue to follow. The patient will be placed on a medical floor with telemetry. He will have vital signs q.4 h. DVT prophylaxis will be provided with SCDs. We will hold all anticoagulants. He will be n.p.o. We will repeat a CBC and CMP in the morning as well as a troponin. The patient's troponin was 0.027. The patient at this time is not complaining of any chest pain and denied any previous complaints of chest pain. We will do a series of troponin draws and will closely monitor and continue to follow and repeat an EKG in the morning. Further orders and recommendations pending hospital course, diagnostic studies, and physician evaluation. Dictated by LEIDY Morejon for Kasie Dubon MD Seen and examined patient and discussed case [employer] CUTTER KEVIN
--- NOTE | 2016-05-06 11:16 | EKG Report ---
Test Performed on : 05/06/2016 09:08:16 AM Test Reason : Tachycardia, Repeat EKG Blood Pressure : / mmHG Vent. Rate : 135 BPM Atrial Rate : 141 BPM P-R Int : 200 ms QRS Dur : 114 ms QT Int : 264 ms P-R-T Axes : 000 016 139 degrees QTc Int : 396 ms Sinus tachycardia. Low voltage QRS Inferior-posterior infarct , age undetermined Abnormal ECG When compared with ECG of 06-MAY-2016 01:45, (Unconfirmed) Previous ECG has undetermined rhythm, needs review Left bundle branch block is no longer present Inferior-posterior infarct is now present Confirmed by Pamela [place], Elie Noyola ([id number]) on 05/07/2016 7:59:16 PM
[2016-05-06] MEDS: CARAFATE LIQUID PO SCH ×3 (11:34→20:00)
[2016-05-06] MEDS: ICAR-C PLUS PO SCH ×2 (11:35→22:00)
--- NOTE | 2016-05-06 12:26 | Diag Imaging Result Document ---
PROCEDURE NAME: FLAT/UPRIGHT ABD/1 VIEW CHEST - 05/06/2016 FLAT AND UPRIGHT ABDOMEN: FINDINGS: There are numerous surgical clips and apparent anchors for mesh over the pelvis and right lower quadrant. There is some gas in the colon and small bowel without evidence of dilatation. This is actually much less distended in appearance than on 04/13/2016. No evidence of organomegaly or mass is present. There is a penile prosthesis. IMPRESSION: Nonspecific abdomen.
[2016-05-06 15:02] LABS: HEMATOCRIT 26.7 % (42.0-52.0); HEMOGLOBIN 8.5 g/dL (14.0-18.0)
--- NOTE | 2016-05-06 15:57 | CONSULTATION ---
DATE OF CONSULTATION: 05/06/2016 REASON FOR REFERRAL: Anemia, GI bleed. HISTORY OF PRESENT ILLNESS: This is an 80-year-old, white male who reports feeling "awful" for the last several months. He reports nausea in the morning time. No reported vomiting, per patient. He does have trouble with past medical history, due to his history of dementia and no family is available at the bedside at this time. He does report some onset of chest pains and upper abdominal pain. He states his bowel movements are not always regular but he denies diarrhea. He does report some recent black stools. He denies any bright red blood in the stool. I am not sure when his last colonoscopy was. He reports recently changing primary physicians from Dr. Gilman to Dr. Bert Sharpe. He had seen his nurse practitioner recently and was placed on Bactrim for a urinary tract infection. He presented to the emergency room after falling. He also reports some generalized weakness and fatigue. He had reported chest pain. Denied any shortness of breath or cough. He had reported some abdominal pain and black stools. On evaluation in the emergency room he was found to be anemic and also noted Hemoccult-positive stool. PAST MEDICAL HISTORY: For bladder cancer status post cystectomy and urostomy placement. Coronary artery disease with history of stent placement. Dementia, diabetes type 2, GERD, hyperlipidemia, hypertension, peripheral vascular disease. History of atrial fibrillation on Eliquis. PAST SURGICAL HISTORY: Cystectomy and urostomy for bladder cancer. Appendectomy, hernia repair, left leg surgery. ALLERGIES: Cipro causing hives. HOME MEDICATIONS: Zocor 40 mg every night. Zantac 150 mg daily, metformin 1000 mg twice daily. Glyburide 5 mg twice daily. Donepezil 10 mg daily. Celexa 40 mg daily. Carvedilol 6.25 mg twice daily. Eliquis 2.5 mg twice daily. Bactrim for recent diagnosis of urinary infection twice daily. Meclizine 1/2 to 1 tablet every 8 hours as needed. Bentyl 10 mg 3 times a day. SOCIAL HISTORY: Reports quitting tobacco use over 25 years ago. He denies alcohol use. He had 3 children, 2 living children. He lives at home and care is assisted by his 2 children. REVIEW OF SYSTEMS: Per HPI. PHYSICAL EXAMINATION: Generally: Patient is in no acute distress. HEENT: Normocephalic. Atraumatic. Pupils equal, round, reactive to light. Sclerae nonicteric. Respiratory: Lung sounds essentially clear bilaterally. Abdomen: Soft. He has a urostomy to the right lower quadrant with yellow urine noted in bag. Positive bowel sounds. Extremities: No lower extremity edema noted. Vital Signs: Temperature 97.8 degrees, pulse 117, respiratory rate is 16. Blood pressure 122/84. LABORATORY: Hematology: White count 8.28, hemoglobin 8.5, hematocrit 26.7, MCV 85.8, platelets 382,000. He has received 2 units of packed red blood cells. Coagulation: Pro time 10.7, INR 1.02. PTT 24.5. Chemistry: Sodium 136, potassium 4.6, chloride 98, CO2 24, BUN 31, creatinine 1.1. Glucose 191. Calcium 9.1, iron 27, ferritin 27. Total bilirubin 0.44, AST 10, ALT 7, alkaline phosphatase 79, vitamin B12 at 196, folate 5. Urinalysis shows trace protein and large amount of leukocytes 10-20 white blood cell. IMAGING STUDIES: Abdominal x-ray showed nonspecific abdominal x-ray. There was some gas in the colon and small bowel without evidence of dilation, less distended than from the 04/13/2016 x-ray. He does have a penile prosthesis. ASSESSMENT: 1. Recent fall. 2. Weakness, fatigue. 3. Melena. 4. Anemia. 5. Urinary tract infection. 6. Atrial fibrillation. 7. Other medical history of hyperlipidemia, hypertension, diabetes, history of bladder cancer with urostomy. PLAN: Continue to monitor for active bleeding. Monitor hemoglobin and hematocrit. Continue PPI. We will hold his Eliquis and for an EGD tomorrow. Transfuse further packed red blood cells as needed. Further plans will be made according to findings. I have discussed the EGD procedure with the patient along with his son who will be signing his permit due to patient's history of dementia. I have explained benefits and risks of the procedure and they wish to proceed. Further plans to be made per Dr. Dobbins. I have discussed this case with Dr. Dobbins. Dictated by LEIDY Tilley for Frantz Dobbins MD
[2016-05-06] MEDS: ZOCOR PO SCH (22:06)
[2016-05-07] MEDS ORDERED: ROCEPHIN 1 GM/NS 50 ML IV SCH (00:05)
[2016-05-07] MEDS: PROTONIX 80 MG in NS 80 ML IV SCH ×2 (02:14→23:03)
[2016-05-07] MEDS: CARAFATE LIQUID PO SCH ×4 (03:35→23:03)
[2016-05-07] MEDS: HUMALOG SUBQ SCH ×4 (06:07→23:21)
[2016-05-07 07:15] LABS: MANUAL DIFF NEEDED? NO
[2016-05-07 07:30] LABS: BASO% 0.3 % (0.0-0.8); EOS# 0.16 X1000 (0.0-0.7); EOS% 2.6 % (0.0-10.0); HEMATOCRIT 24.9 % (42.0-52.0); HEMOGLOBIN 7.6 g/dL (14.0-18.0); IMM GRAN# 0.05 X1000 (0.0-0.04); IMM GRAN% 0.8 % (0.0-0.5); LYMPH# 1.15 X1000 (1.2-3.4); LYMPH% 18.4 % (20.5-51.1); MCH 26.7 PG (27-31); MCHC 30.5 g/dL (33-37); MCV 87.4 FL (81-99); MONO# 0.66 X1000 (0.11-0.59); MONO% 10.6 % (1.7-9.3); MPV 9.6 FL (7.4-10.4); NEUT% 67.3 % (42.2-75.2); PLT 253 X1000 (130-400); RBC 2.85 XMIL (4.7-6.1)
[2016-05-07 07:58] LABS: CALCIUM 8.7 mg/dL (8.8-10.2); POTASSIUM 4.6 mmol/L (3.5-5.1); TOTAL BILIRUBIN 0.37 mg/dL (0.20-1.00); TOTAL PROTEIN 5.1 g/dL (6.3-8.3)
[2016-05-07] MEDS ORDERED: ALBUTEROL NEB ONE (08:38)
[2016-05-07] MEDS ORDERED: MYLICON DROPS (DOSE) MISC ONE (13:34)
[2016-05-07] MEDS ORDERED: DIPRIVAN 1% ONE (14:08)
[2016-05-07] MEDS ORDERED: ANESTHESIA PB SET 88 IN 5742 ONE (14:18)
[2016-05-07] MEDS ORDERED: LR 1,000 ML ONE (14:18)
--- NOTE | 2016-05-07 14:18 | PROGRESS NOTE ---
DATE: 05/07/2016 SUBJECTIVE: Mr. Ike Lovell is an 80-year-old male. He states he feels pretty good. Last bowel movement was last night. No complaints of abdominal pain or cramping. OBJECTIVE: Vital signs: Temperature is 98.2 degrees, heart rate 93, respiratory rate 18, blood pressure 107/76, O2 saturation 96% on room air. General: Mr. Lovell is an 80-year-old male. He is in no acute distress. He is able to answer all questions appropriately Cardiovascular: S1, S2. Regular rate and rhythm. No rubs, gallops, or murmurs. Pulmonary: Clear to auscultation. Bilateral breath sounds. No accessory muscle use or work of breathing noted. GI: Soft, nontender, nondistended. Positive bowel sounds x4. Skin: Warm, dry, intact, and pale. LABORATORY DATA: White blood cells 6,000, hemoglobin 7.6, hematocrit 24.9, platelet count 253,000. Sodium 138, potassium 4.6, BUN 22, creatinine is 1.4, glucose 98. Liver enzymes negative. IMAGING: Abdominal x-ray 05/06/2016 nonspecific. ASSESSMENT AND PLAN: 1. Gastrointestinal bleed. Started on a Protonix drip, Carafate. Denies any more coffee ground emesis or black stools. He did receive a unit of blood yesterday. Dr. Dobbins is taking him for an endoscopy today. 2. Acute blood loss anemia secondary to gastrointestinal bleed. Will receive 2 units of blood with Lasix today. 3. Iron deficiency anemia. Iron supplementations has been added. 4. Acute on chronic kidney disease, resolving. His BUN is 22 and his creatinine is 1.4. 5. Urinary tract infection with gram-negative rods from 05/05/2016. Continue on Rocephin. 6. Hypertension. Continue low-dose Coreg. 7. Chronic systolic congestive heart failure with severe global hypokinesis and left ventricular hypertrophy. This is per echo that was performed on March 11, 2016. He has an ejection fraction of 20 to 25%. Given that he will receive 2 units of blood today, Lasix 20 mg with blood has been ordered. He has no signs and symptoms of acute failure at this time but will need to be monitored. 8. Chronic atrial fibrillation. He was actually just sinus tachycardic on admit. Continue home medications. Eliquis has been put on hold given the GI bleeding. 9. History of coronary artery disease with stents noted. No complaints of pain. 10. Hyperlipidemia. Continue home medications. 11. Diabetes mellitus type 2. Sliding scale insulin. Pattern blood glucoses. 12. Deep venous thrombosis prophylaxis. SCDs. 13. Gastrointestinal prophylaxis. Protonix drip. Dictated by LEIDY Guevara for Gary Bryan MD
[2016-05-07] MEDS ORDERED: LASIX IV ONE (15:00)
--- NOTE | 2016-05-07 15:18 | OPERATIVE NOTE ---
PROCEDURE DATE: 05/07/2016 PROCEDURE PERFORMED: Esophagogastroduodenoscopy. PROVIDER: Frantz Dobbins MD PREOPERATIVE DIAGNOSIS: Acute gastrointestinal bleed and anemia secondary to gastrointestinal bleed. POSTOPERATIVE DIAGNOSIS: Giant duodenal ulcer and gastritis. HISTORY: This is an 80-year-old gentleman, admitted to the hospital with GI bleed. He was found to be anemic. EGD was done for diagnostic as well as therapeutic purposes. DESCRIPTION OF PROCEDURE: Informed consent was obtained from the patient. The procedure, risks, benefits, and alternatives were explained in layman's terms. He understood. All of his pertinent questions were answered. The patient was brought to the endoscopy unit and was premedicated as per Anesthesia. After adequate sedation, while he was lying in the left lateral position, the gastroscope was introduced into the posterior pharynx and advanced under direct vision into the esophagus. The esophagus in its entire length appeared to be normal. No esophagitis, webs, rings, or varices were seen. The scope was then passed through the esophagus into the stomach. The stomach was examined both in straight and retroflexed view, which revealed normal cardia, fundus, body, and antrum. The scope was passed through the normal pylorus and into the duodenal bulb, where a giant duodenal ulcer was seen on the inferior aspect. The ulcer was about 4-5 cm in diameter, deep, punched out. There were some hyperemic spots but I did not see any visible vessel or active bleeding. The 2nd portion of the duodenum appeared to be normal. The scope was then removed. The patient tolerated the procedure with no complications noted. The patient was then transferred to the recovery area in stable condition. IMPRESSION: 1. Giant duodenal ulcer, without any evidence or stigmata of recent bleed. 2. Gastritis, mild antrum. RECOMMENDATIONS: I would continue him on proton pump inhibitor recheck hemoglobin and hematocrit and transfuse, if necessary. In the meantime, I would avoid starting him back on Eliquis yet. I would give him at least a week or so before we start that. In the meantime, continue proton pump inhibitor. Follow up with me in the office after discharge.
[2016-05-07] MEDS: COREG PO SCH ×2 (15:53→23:04)
[2016-05-07] MEDS: ICAR-C PLUS PO SCH ×2 (15:53→23:04)
[2016-05-07] MEDS: NS 500 ML IV SCH (15:55)
[2016-05-07] MEDS: ZOCOR PO SCH (23:04)
[2016-05-08] MEDS: PROTONIX 80 MG in NS 80 ML IV SCH ×3 (02:40→17:19)
[2016-05-08] MEDS: CARAFATE LIQUID PO SCH ×4 (02:40→20:47)
[2016-05-08 06:41] LABS: MANUAL DIFF NEEDED? NO
[2016-05-08 06:48] LABS: BASO% 0.2 % (0.0-0.8); EOS# 0.14 X1000 (0.0-0.7); EOS% 2.2 % (0.0-10.0); HEMATOCRIT 30.3 % (42.0-52.0); HEMOGLOBIN 9.8 g/dL (14.0-18.0); LYMPH# 1.21 X1000 (1.2-3.4); LYMPH% 19.3 % (20.5-51.1); MCH 27.7 PG (27-31); MCHC 32.3 g/dL (33-37); MCV 85.6 FL (81-99); MONO% 12.8 % (1.7-9.3); MPV 8.6 FL (7.4-10.4); NEUT% 65.5 % (42.2-75.2); PLT 263 X1000 (130-400); RBC 3.54 XMIL (4.7-6.1)
[2016-05-08 07:20] LABS: ALBUMIN 3.2 g/dL (3.5-5.0); CALCIUM 8.7 mg/dL (8.8-10.2); MAGNESIUM 1.9 mg/dL (1.5-2.7); POTASSIUM 3.8 mmol/L (3.5-5.1); TOTAL BILIRUBIN 0.61 mg/dL (0.20-1.00); TOTAL PROTEIN 5.9 g/dL (6.3-8.3)
[2016-05-08] MEDS: HUMALOG SUBQ SCH ×4 (07:54→20:48)
[2016-05-08] MEDS: ICAR-C PLUS PO SCH ×2 (10:38→20:47)
[2016-05-08] MEDS: COREG PO SCH ×3 (10:38→20:47)
[2016-05-08] MEDS: NS 500 ML IV SCH ×2 (10:40→14:48)
--- NOTE | 2016-05-08 12:17 | PROGRESS NOTE ---
DATE: 05/08/2016 Mr. Lovell is a 80-year-old male. He states he feels much better. Not much pain at all throughout the night. Slept well. No complaints at this time. OBJECTIVE: Temperature 98.1 degrees, heart rate 81, respiratory rate 20, blood pressure 114/85, O2 saturation 95% on room air.General: Mr. Lovell is an 80-year-old male, in no acute distress. Able to answer questions appropriately. Cardiovascular: Irregularly irregular rate and rhythm. No rubs, gallops, murmurs. Pulmonary: Clear to auscultation. Bilateral breath sounds. No accessory muscle use or work of breathing noted. GI: Soft, nontender, nondistended. Positive bowel sounds x4. Right lower quadrant ileostomy dry, intact. Skin: Warm, dry, intact. Not as pale as yesterday. Extremities: No edema noted. +2 dorsalis and radial pulses. LABORATORY DATA: White blood cells 6000, hemoglobin 9.8, hematocrit 30.3, platelet count 263,000. Sodium 140, potassium 3.8, BUN 17, creatinine is 1.5. Glucose 76. Hemoglobin A1c was 6.3, calcium 8.7, magnesium 1.9. Phosphorus 3.5, bilirubin 0.61. AST 11, ALT 5. Albumin 3.2. IMAGING: None. PROCEDURES: He had an EGD on 05/07/2016 which revealed a large duodenal ulcer that was 4-6 cm in diameter and depth. There was no active bleeding. ASSESSMENT AND PLAN: 1. Gastrointestinal bleed. Currently no active bleed. He had a Protonix drip, started on Carafate. No more spells of diarrhea or coffee-grounds emesis. Dr. Dobbins did the EGD yesterday which showed a large duodenal ulcer 4-5 cm diameter and depth. It was not actively bleeding. He is now on a full liquid diet and his recommendations were not to start Eliquis was back for a week or so, to continue the proton pump inhibitor and transfuse for hemoglobin and hematocrit if needed. 2. Acute blood loss anemia. He has received a total of 3 units of packed red blood cells since admission. Currently stable. 3. Iron-deficiency anemia. Continue iron supplementation. 4. RODERICK on CKD resolving. 5. Urinary tract infection with E. coli. Sensitivities have resulted. He has been started on Invanz. He is ESBL positive. 6. Hypertension. Continue Coreg. 7. Chronic systolic congestive heart failure with severe global hypokinesis and LVH with EF 20- 25%. He received 20 of Lasix yesterday with blood. There are no signs or symptoms of acute failure at this time. 8. Chronic atrial fibrillation. Eliquis is now on hold and will be for a week or so. 9. History of coronary artery disease with stents. No complaints of chest pain. 10. Hyperlipidemia. Continue home medications. 11. Diabetes mellitus type 2. Sliding scale insulin. Pattern blood glucoses. 12. Deep venous thrombosis prophylaxis. SCDs. 13. Gastrointestinal prophylaxis. Proton pump inhibitor. Dictated by LEIDY Guevara for Gary Bryan MD Addendum: I personally evaluated and examined the patient in conjunction to the THEATER TEACHER and agreed with her assessment and plans. With his recurrent ESBL Ecoli in the urine, we started him on Ertapenem. He will need a PICC line on Wednesday and will need a total of 2 weeks of Ertapenem MTDD
--- NOTE | 2016-05-08 14:20 | PROGRESS NOTE ---
DATE: 05/08/2016 SUBJECTIVE: Patient states he feels much better. He denies complaints today. He has tolerated his diet. OBJECTIVE: Vital Signs: Temperature 98.1 degrees, pulse 81, respirations 20, blood pressure 114/85. General: Awake, alert, no acute distress. HEENT: Normocephalic, atraumatic. Pupils equal, round, reactive to light. Sclerae nonicteric. Cardiovascular: Irregular rate. Pulmonary: Lung sounds clear. Abdomen: Soft, nontender, positive bowel sounds. DIAGNOSTIC RESULTS: Hematology: White count 6.26, hemoglobin 9.8, hematocrit 30.3, MCV 85.6, platelets 263,000. Chemistry: Sodium 140, potassium 3.8, chloride 101, CO2 25, BUN 17, creatinine 1.5, glucose 76. EGD done on 05/07/2016 showed a giant duodenal ulcer without any evidence of active bleeding along with gastritis. ASSESSMENT AND PLAN: 1. GI bleeding resolved. 2. Anemia improving. 3. Large duodenal ulcer. PLAN: Continue supportive care. Continue PPI but change to p.o. every 12 hours instead of IV. He will need to be on PPI when discharged. Follow up with Dr. Dobbins once discharged. Patient voices understanding. I have discussed this case with Dr. Dobbins. Dictated by LEIDY Tilley for Frantz Dobbins MD cc: LEIDY Packer MD
[2016-05-08] MEDS: INVANZ 1 GM/NS 50 ML IV SCH (14:33)
[2016-05-08] MEDS: PERICOLACE PO SCH (20:47)
[2016-05-08] MEDS: ZOCOR PO SCH (20:47)
[2016-05-08] MEDS ORDERED: PRILOSEC PO SCH (21:00)
[2016-05-09] MEDS ORDERED: PROTONIX IV SCH (03:24)
[2016-05-09] MEDS: HUMALOG SUBQ SCH ×3 (07:00→16:00)
[2016-05-09] MEDS: CARAFATE LIQUID PO SCH ×3 (08:00→20:00)
[2016-05-09] MEDS: PERICOLACE PO SCH ×2 (09:00→20:00)
[2016-05-09] MEDS: COREG PO SCH (09:00)
[2016-05-09] MEDS: ICAR-C PLUS PO SCH ×2 (09:00→20:00)
[2016-05-09] MEDS: INVANZ 1 GM/NS 50 ML IV SCH (11:00)
[2016-05-09] MEDS ORDERED: NS 1,000 ML ONE (13:36)
--- NOTE | 2016-05-09 14:18 | PROGRESS NOTE ---
DATE: 05/09/2016 SUBJECTIVE: Mr. Lovell is an A 80-year-old male, he feels better, no complaints of pain. He slept well. OBJECTIVE: Vital Signs: From 05/08 at 8 p.m., temperature 98 degrees, heart rate 93,respiratory rate 16, blood pressure 113/58. General: Mr. Addison is an 80-year-old male, who is in no acute distress. He is able to answer questions appropriately. Cardiovascular: Irregularly irregular rate and rhythm. No rubs, gallops, murmurs. Pulmonary: Clear to auscultation. Bilateral breath sounds. No accessory muscle use or work of breathing noted. Currently on room air. Gastrointestinal: Abdomen soft, nontender, nondistended. Positive bowel sounds x4. Right lower quadrant ileostomy, dry, intact. Skin: Warm, dry, intact. Not as pale as he has been. Extremities: No edema noted, +2 dorsalis and radial pulses. LABORATORY DATA: CMP, magnesium and phos are still pending. White blood cells 7000, hemoglobin 9.9, hematocrit 31.2. Platelet count 259,000. IMAGING: None. ASSESSMENT AND PLAN: 1. Gastrointestinal bleed secondary to large duodenal ulcer. This was part of the 3rd portion of the EGD performed 05/07/[address] Dobbins and the 4-5 cm in diameter and depth duodenal ulcer was cauterized and hemostasis was achieved. We will continue to hold Eliquis. Protonix is changed to 40 p.o. twice daily. He received a total of 3 units packed red blood cells since admit but none in the last 24-48 hours. Currently patient is on full liquid diet. May be able to start advancing to a GI soft. 2. Acute blood loss anemia. It is stable. 3. Iron-deficiency anemia. Continue Icar Plus. Also has low folate at 5, ferritin was down to 27. B12 was also down to 196. Icar Plus has all of this. 4. Acute kidney injury on chronic kidney disease. Essentially resolved. 5. ESBL positive Escherichia coli urinary tract infection. Likely chronic in nature. He has been started on Invanz or ertapenem. He will have a total of 2 weeks. PICC line will be scheduled for Wednesday. 6. Hypertension. Continue Coreg. 7. Chronic systolic congestive heart failure with severe global hypokinesis and LVH with EF of 20- 25%. No signs of acute failure at this time. 8. Chronic atrial fibrillation. Eliquis is continuing to be held. Rate is controlled. 9. History of coronary artery disease with stents, no complaints of chest pain. 10. Hyperlipidemia. Continue home medications. 11. Diabetes mellitus type 2. Continue sliding scale insulin. Pattern blood glucoses. 12. Deep venous thrombosis prophylaxis. SCDs. 13. Gastrointestinal prophylaxis. Proton pump inhibitor. Dictated by LEIDY Guevara for Gary Bryan MD cc: LEIDY Guevara
[2016-05-09 18:00] LABS: BASO% 0.1 % (0.0-0.8); HEMATOCRIT 31.2 % (42.0-52.0); HEMOGLOBIN 9.9 g/dL (14.0-18.0); LYMPH# 1.21 X1000 (1.2-3.4); LYMPH% 16.4 % (20.5-51.1); MCH 27.4 PG (27-31); MCHC 31.7 g/dL (33-37); MCV 86.4 FL (81-99); MONO# 0.87 X1000 (0.11-0.59); MONO% 11.8 % (1.7-9.3); MPV 9.1 FL (7.4-10.4); NEUT% 71.7 % (42.2-75.2); PLT 259 X1000 (130-400); RBC 3.61 XMIL (4.7-6.1)
[2016-05-09 18:15] LABS: AGAP 14; ALBUMIN 3.1 g/dL (3.5-5.0); ALKALINE PHOSPHATASE 73 U/L (32-122); BUN 15 mg/dL (8-22); CALCIUM 8.6 mg/dL (8.8-10.2); CHLORIDE 99 mmol/L (98-107); COSMO 275; GOT 10 U/L (10-34); GPT 5 U/L (10-44); MAGNESIUM 1.9 mg/dL (1.5-2.7); POTASSIUM 3.8 mmol/L (3.5-5.1); SODIUM 137 mmol/L (136-145); TCO2 24 mmol/L (25-35); TOTAL PROTEIN 5.6 g/dL (6.3-8.3)
[2016-05-09 18:42] LABS: MANUAL DIFF NEEDED? YES
[2016-05-09 18:52] LABS: HYPOCHROM 1+; LYMPHS 12 % (21-51); MONO 8 % (1-9)
[2016-05-09] MEDS: NS 500 ML IV SCH (19:51)
[2016-05-09] MEDS: PROTONIX PO SCH (20:00)
[2016-05-09] MEDS: ZOCOR PO SCH (20:00)
[2016-05-10] MEDS: CARAFATE LIQUID PO SCH ×3 (02:42→16:38)
[2016-05-10] MEDS: COREG PO SCH ×2 (06:29→09:46)
[2016-05-10] MEDS: HUMALOG SUBQ SCH ×4 (06:30→16:39)
[2016-05-10 07:08] LABS: MANUAL DIFF NEEDED? NO
[2016-05-10 07:15] LABS: BASO% 0.3 % (0.0-0.8); EOS# 0.04 X1000 (0.0-0.7); EOS% 0.7 % (0.0-10.0); HEMATOCRIT 33.6 % (42.0-52.0); HEMOGLOBIN 10.6 g/dL (14.0-18.0); LYMPH# 1.32 X1000 (1.2-3.4); LYMPH% 22.2 % (20.5-51.1); MCH 27.3 PG (27-31); MCHC 31.5 g/dL (33-37); MCV 86.6 FL (81-99); MONO# 0.84 X1000 (0.11-0.59); MONO% 14.1 % (1.7-9.3); MPV 9.6 FL (7.4-10.4); NEUT% 62.7 % (42.2-75.2); PLT 277 X1000 (130-400); RBC 3.88 XMIL (4.7-6.1)
[2016-05-10 07:24] LABS: AGAP 11; ALBUMIN 3.2 g/dL (3.5-5.0); ALKALINE PHOSPHATASE 77 U/L (32-122); BUN 13 mg/dL (8-22); CALCIUM 8.8 mg/dL (8.8-10.2); CHLORIDE 99 mmol/L (98-107); COSMO 274; GOT 9 U/L (10-34); GPT < 5 U/L (10-44); SODIUM 137 mmol/L (136-145); TCO2 27 mmol/L (25-35); TOTAL BILIRUBIN 0.54 mg/dL (0.20-1.00)
[2016-05-10] MEDS: ICAR-C PLUS PO SCH (09:45)
[2016-05-10] MEDS: PROTONIX PO SCH (09:45)
[2016-05-10] MEDS: PERICOLACE PO SCH (09:46)
--- NOTE | 2016-05-10 11:30 | PROGRESS NOTE ---
DATE: 05/10/2016 SUBJECTIVE: Follow up the patient for ESBL Escherichia coli UTI, peptic ulcer disease, hypertension, and hyperlipidemia. OBJECTIVE: Vital signs: Blood pressure is 95/66, pulse of 59, respiration 18, temperature 97.8 degrees, saturations of 99% room air. General appearance: Well-developed, well-nourished white male, pleasant in no acute distress. HEENT: Anicteric. Clear conjunctivae. Neck: Supple. No JVD. No bruit. Cardiovascular: S1, S2. Normal rate and rhythm. No murmur, rubs, or gallops. Pulmonary: Clear to auscultation bilaterally. Gastrointestinal: Abdomen soft, nontender, nondistended. Normoactive bowel sounds. Musculoskeletal: No clubbing, cyanosis, or edema. LABORATORY: White count 5.95, hemoglobin 10.6, hematocrit of 33.6, platelets of 277,000. Chemistry: Sodium 136, potassium 4.0, chloride 99, bicarb 27, BUN 13, creatinine 1.3, glucose of 101. ASSESSMENT AND PLAN: This is an 80-year-old, pleasant white male, admitted to the hospital for GI bleed: 1. Gastrointestinal bleed status post EGD, showed a 4-5 cm diameter deep duodenal ulcer. We will continue to keep the patient on Protonix for now. The patient did receive 3 packed red blood cells while he was in the hospital. His hemoglobin and hematocrit has remained stable. He is on a GI soft diet. He is doing well. No recurrent melena. 2. Acute blood loss anemia. Stable. 3. Iron deficiency anemia. We will continue to replete his iron. 4. ESBL Escherichia coli in the urine. The patient will need 2 weeks of ertapenem. PICC line on Wednesday. apartment maintenance worker consulted for inpatient outpatient daily antibiotics. 5. Hypertension. Continue Coreg. 6. History of chronic systolic heart failure. He is not in any acute exacerbation. His EF last was 20-25%. 7. Chronic atrial fibrillation. We are going to hold his Eliquis. Probably we can hold it indefinitely, since he has a bleed in his GI tract 8. Diabetes type 2. Continue sliding scale insulin. CODE STATUS: The patient is a full code.
[2016-05-10] MEDS: INVANZ 1 GM/NS 50 ML IV SCH (16:38)
[2016-05-11] MEDS: CARAFATE LIQUID PO SCH ×6 (00:18→20:58)
[2016-05-11] MEDS: PROTONIX PO SCH ×3 (00:19→20:59)
[2016-05-11] MEDS: PERICOLACE PO SCH ×3 (00:19→20:59)
[2016-05-11] MEDS: ZOCOR PO SCH ×2 (00:19→20:59)
[2016-05-11] MEDS: ICAR-C PLUS PO SCH ×3 (00:19→20:58)
[2016-05-11] MEDS: HUMALOG SUBQ SCH ×5 (00:19→20:57)
[2016-05-11] MEDS: COREG PO SCH ×3 (00:19→20:56)
[2016-05-11] MEDS: NS 500 ML IV SCH ×3 (00:20→01:25)
[2016-05-11 06:51] LABS: MANUAL DIFF NEEDED? NO
[2016-05-11 06:55] LABS: BASO% 0.4 % (0.0-0.8); EOS# 0.16 X1000 (0.0-0.7); EOS% 3.1 % (0.0-10.0); HEMATOCRIT 33.9 % (42.0-52.0); HEMOGLOBIN 10.7 g/dL (14.0-18.0); LYMPH# 1.24 X1000 (1.2-3.4); LYMPH% 23.7 % (20.5-51.1); MCH 27.5 PG (27-31); MCHC 31.6 g/dL (33-37); MCV 87.1 FL (81-99); MONO% 13.4 % (1.7-9.3); MPV 9.4 FL (7.4-10.4); NEUT% 59.4 % (42.2-75.2); PLT 283 X1000 (130-400); RBC 3.89 XMIL (4.7-6.1)
[2016-05-11 07:08] LABS: INR 1.03; PROTIME 10.8 Seconds (9.2-11.7)
[2016-05-11 07:17] LABS: ALBUMIN 3.1 g/dL (3.5-5.0); CALCIUM 8.8 mg/dL (8.8-10.2); MAGNESIUM 1.9 mg/dL (1.5-2.7); POTASSIUM 3.9 mmol/L (3.5-5.1); TOTAL BILIRUBIN 0.44 mg/dL (0.20-1.00); TOTAL PROTEIN 5.8 g/dL (6.3-8.3)
--- NOTE | 2016-05-11 12:02 | PROGRESS NOTE ---
DATE: 05/11/2016 SUBJECTIVE: The patient is sitting in the chair. He states that he feels very good today. No acute events noted overnight. OBJECTIVE: Vital Signs: Temperature is 97, blood pressure 93/56, heart rate 103, respirations 18, O2 saturations 96% on room air. General: This is an elderly male, sitting in a chair in no acute distress. HEENT: Head normocephalic and atraumatic. Heart: S1, S2 normal. Tachycardic. Lungs: Clear to auscultation bilaterally. No wheezes, no rales. No rhonchi. Abdomen: Positive bowel sounds. Soft, nontender, nondistended. Extremities: No edema. No cyanosis. No calf tenderness. Labs: White blood cell count 5.2, hemoglobin 10, hematocrit 33, platelets 283,000. INR 1. Sodium 139, potassium 3.9, chloride 102, CO2 23, BUN 13, creatinine 1.2, glucose 90, total protein 5.8, albumin 3.1. ASSESSMENT AND PLAN: 1. Gastrointestinal bleed secondary to a large duodenal ulcer. Stable. Continue on Carafate and Protonix. 2. Urinary tract infection secondary to extended-spectrum B-lactamase Escherichia coli. Continue on Invanz. We will consult infectious disease regarding length of antibiotic therapy. 3. Dyslipidemia. Continue on Zocor. 4. Diabetes mellitus type 2. Continue on sliding scale insulin. 5. Dementia. Continue on Aricept. 6. Chronic atrial fibrillation. The patient is currently off of anticoagulation due to the recent gastrointestinal bleed. 7. Chronic systolic congestive heart failure. Stable. 8. Disposition. The patient states that he will be going home upon discharge. cc: Virginia Cruz MD
[2016-05-11] MEDS: INVANZ 1 GM/NS 50 ML IV SCH (12:38)
--- NOTE | 2016-05-11 16:02 | CONSULTATION ---
DATE OF CONSULTATION: 05/11/2016 CONCLUSION: Patient was admitted to the hospital with a GI bleed and was found to have a large ulcer. He also has an extended spectrum beta lactamase producing Escherichia coli urinary tract infection. The patient did complain of having flank pain and the family noticed that he had an altered mental status. They said that both of these findings have been seen before when he had urinary tract infections. Therefore, I think it is safe to assume that the patient has a symptomatic urinary tract infection and given that he was complaining of bilateral flank pain it may involve 1 or both of his kidneys. In addition the patient has a history of having a urinary tract infection that rapidly causes him to become septic. RECOMMENDATIONS: I agree with treating the patient with ertapenem. Since this infection appears to be symptomatic and may involve his kidneys, I would suggest treating the patient for 10 more days to complete a 14 day treatment course. He is at now as of today 4 days of treatment in the hospital and when he does go to a rehab, if he went tomorrow, he would need 10 more days of ertapenem. I have ordered a PICC to be placed also to facilitate giving him the antibiotic for the next 10 days. I have also ordered a renal ultrasound to make sure that the patient does not have an abscess or some obstruction to his kidneys. DISCUSSION: The patient has dementia. It was difficult for me to get all of his history since the family members were there and they also helped provide history. He was admitted to the hospital with an altered mental status. He was lethargic and weak. He told me that he was having some flank pain bilaterally. His urine has grown an extended spectrum beta lactamase producing E. Coli. He has been on treatment with ertapenem and he is gaining back his strength and also he is not as confused. He is not having any more flank pain either. DIAGNOSTIC DATA: The patient's laboratory studies thus far show a CBC with a white count of 5240, hemoglobin 10.7, and platelet count 283,000. KUB was obtained. It showed nonspecific findings. Creatinine was 1.2. GFR is 58. Liver function studies were normal. The patient underwent esophagogastroduodenoscopy. A large duodenum ulcer was seen. The patient also had gastritis. PAST MEDICAL HISTORY/REVIEW OF SYSTEMS: Eyes and Ears: He can see and hear okay. Respiratory: He has not recently been complaining of shortness of breath or coughing. Cardiovascular: He did not have any complaints of chest pain or palpitations. GI: No nausea, vomiting, or diarrhea. : The patient had flank pain as mentioned above. Neurologic: The patient does have dementia. He recently had been having worsening of his symptoms most likely due to his urinary tract infection. The patient's weight has been stable. 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 He has had surgery on his left leg. He has had placement of coronary artery stents. He has been admitted with a myocardial infarction. He has also had a hernia repair. It should be noted that the patient still does have a hernia on the left side of the abdominal wall. The patient has had an appendectomy. He had a partial colectomy because of diverticulitis. MEDICAL DISEASES: Positive for diabetes mellitus, hypertension, myocardial infarction, bladder cancer, diverticulitis, and dementia. INFECTIOUS DISEASE HISTORY: Positive for recurrent UTI. FAMILY HISTORY: Positive for diabetes mellitus, hypertension, myocardial infarction, and cancer. SOCIAL HISTORY: The patient lives in the [facility]. He stopped smoking cigarettes and drinking alcoholic beverages over 20 years ago. He is a . He lives alone. He does not have any pets. PHYSICAL EXAMINATION: Vital Signs: Temperature is 97.7 degrees, pulse 103, respirations 18, blood pressure 93/56. Generally: This is an ill-appearing, elderly male. He is in no acute distress. Head, eyes, ears, nose, and throat: He can see near objects. He can hear my spoken words. No drainage noted from the nose or ears. There is no white coating to the tongue. Neck: No meningismus. Thorax: No increased AP diameter of the chest. Lungs: Clear to auscultation. Cardiovascular: Heart rate is regular. Abdomen: Soft and nontender. There is a what appears be an ileal conduit on the right side and a large hernia on the left side. Neurologic: Patient is awake. He can move his extremities. There is no tremor. He had a decrease in his memory as regarding his medical history. Integument: No rash noted. Thank you for the consult. cc: Rafael Butler MD
[2016-05-11 16:33] LABS: INR 1.02; PROTIME 10.7 Seconds (9.2-11.7)
--- NOTE | 2016-05-11 17:54 | Diag Imaging Result Document ---
PROCEDURE NAME: US RENAL 2 (RETROPER) COMPLETE - 05/11/2016 RENAL ULTRASOUND: FINDINGS: The right kidney measures 9.9 x 3.9 x 4.4 cm. Normal renal echotexture and cortical thickness. No renal stone or hydronephrosis. No renal mass. The left kidney measures 10.5 x 3.2 x 6.0 cm. Normal renal echogenicity and cortical thickness. No renal stone or hydronephrosis. No renal mass. The bladder is not seen. IMPRESSION: Normal renal ultrasound.
[2016-05-12] MEDS: CARAFATE LIQUID PO SCH ×3 (01:17→14:01)
[2016-05-12 06:24] LABS: HEMATOCRIT 33.6 % (42.0-52.0); HEMOGLOBIN 10.5 g/dL (14.0-18.0); MCH 27.6 PG (27-31); MCHC 31.3 g/dL (33-37); MCV 88.2 FL (81-99); MPV 9.4 FL (7.4-10.4); RBC 3.81 XMIL (4.7-6.1)
[2016-05-12] MEDS: HUMALOG SUBQ SCH ×4 (06:38→21:32)
[2016-05-12 06:51] LABS: CALCIUM 8.4 mg/dL (8.8-10.2); POTASSIUM 3.6 mmol/L (3.5-5.1)
[2016-05-12] MEDS ORDERED: NS 250 ML ONE (07:52)
[2016-05-12] MEDS: COREG PO SCH ×2 (09:01→21:32)
[2016-05-12] MEDS: ARICEPT PO SCH (09:01)
[2016-05-12] MEDS: ICAR-C PLUS PO SCH (09:01)
[2016-05-12] MEDS: PROTONIX PO SCH (09:01)
[2016-05-12] MEDS: PERICOLACE PO SCH (09:01)
[2016-05-12] MEDS: CELEXA PO SCH (09:01)
--- NOTE | 2016-05-12 10:50 | Diag Imaging Result Document ---
PROCEDURE NAME: CHEST-PORTABLE - 05/12/2016 PORTABLE CHEST: COMPARISON: 05/06/2016. FINDINGS: There has been insertion of a PIC-line from the right. The tip of the PIC-line is at the expected location of the cavoatrial junction. There are no other acute changes identified. There is no pneumothorax seen. IMPRESSION: Tip of PIC-line at cavoatrial junction. Verbal results provided to Brenda in the precision thread grinder operator at 10:35 a.m. on 05/12/2016. MTDD
[2016-05-12] MEDS: INVANZ 1 GM/NS 50 ML IV SCH (11:07)
--- NOTE | 2016-05-12 11:34 | PROGRESS NOTE ---
DATE: 05/11/2016 SUBJECTIVE: The patient is sitting up in the bed eating lunch. He denies complaints today. OBJECTIVE: Vital Signs: Temperature 97.7 degrees, pulse 103, respirations 18, blood pressure 93/56. LABORATORY: Hematology 5.24, hemoglobin 10.7, hematocrit 33.9, MCV 87.1, platelets 283,000. Chemistry: Sodium 139, potassium 3.9, chloride 102, CO2 of 23. BUN 13, creatinine 1.2, glucose 90. ASSESSMENT AND PLAN: 1. Gastrointestinal bleed, currently resolved. 2. Giant duodenal ulcer. Continue proton pump inhibitor. 3. Urinary tract infection, Escherichia coli. Continue antibiotics. Following with Infectious Disease. 4. Atrial fibrillation. Anticoagulation is on hold. Continue current medical management and continue PPI. We will continue to follow. Dictated by LEIDY Tilley for Frantz Dobbins MD cc: LEIDY Packer MD
--- NOTE | 2016-05-12 14:54 | PROGRESS NOTE ---
DATE: 05/12/2016 SUBJECTIVE: The patient is resting comfortably in bed. He does have periods of mild confusion but otherwise he has no complaints. OBJECTIVE: Vital Signs: Temperature 97.8 degrees, blood pressure 108/55, heart rate 102, respirations 20, O2 saturations 99% on room air. General: This is an elderly male lying comfortably in bed in no acute distress. Head: Normocephalic, atraumatic. Heart: S1, S2. Normal. Regular rate and rhythm. Lungs: Clear to auscultation bilaterally. No wheezes, no rales. No rhonchi. Abdomen: Positive bowel sounds. Soft, nontender, nondistended. Extremities: No edema. No cyanosis. No calf tenderness. Neurologic: The patient is alert and oriented. LABS: White blood cell count 5, hemoglobin 10, hematocrit 33, platelets 272,000. Sodium 137, potassium 3.6, chloride 100, CO2 22, BUN 14, creatinine 1.2, glucose 111, calcium 8.4. ASSESSMENT AND PLAN: 1. Gastrointestinal bleed secondary to a large duodenal ulcer. Continue on Carafate and Protonix. 2. Urinary tract infection secondary to extended spectrum beta-lactamase Escherichia coli. Continue on Invanz as directed by Dr. Butler. The patient had a peripherally inserted central catheter line placed today to continue with IV antibiotic therapy at rehab. 3. Dyslipidemia. Continue on Zocor. 4. Diabetes mellitus type 2. Continue on sliding scale insulin. 5. Dementia. Aware. Continue on Aricept. 6. Chronic atrial fibrillation. The patient is rate controlled. Anticoagulation has been stopped due to the patient's gastrointestinal bleed. 7. Chronic systolic congestive heart failure. Stable. 8. Disposition. The patient is stable for discharge to rehab. technical services consultant is working on rehab placement. cc: Virginia Cruz MD
--- NOTE | 2016-05-12 17:41 | PROGRESS NOTE ---
DATE: 05/12/2016 PRESENT ILLNESS: The patient has an extended spectrum beta lactamase producing E. coli urinary tract infection which I think is symptomatic and most likely involves the kidneys. MEDICATIONS: This is the 5th day of treatment with Invanz. PHYSICAL EXAMINATION: Vital Signs: Temperature is 98.1 degrees, pulse 71, respirations 19, blood pressure 127/69. Generally: This is a somewhat ill-appearing, elderly male. He is in no acute distress. Lungs: Clear to auscultation. Cardiovascular: Regular heart rate. Abdomen: Abdomen and flanks soft and nontender, abdominal wall hernia and ileostomy intact. Neurologic: The patient is awake. He is more alert and he is carrying on more of a coherent conversation than he was yesterday. LAB AND X-RAY: A CBC for today shows a white count of 5000, hemoglobin 10.5, and platelet count 272,000. Creatinine is 1.2. The GFR is 58. There is no new x-ray for today. ASSESSMENT AND PLAN: I would suggest continuing ertapenem 1 g IV every 24 hours for 9 more days to complete a 14-day treatment with ertapenem. After the antibiotic is done the patient's PICC can be removed also. COMORBIDITY: Diabetes, elderly. cc: Rafael Butler MD MTDBindu
[2016-05-13] MEDS: ICAR-C PLUS PO SCH ×2 (00:15→08:52)
[2016-05-13] MEDS: CARAFATE LIQUID PO SCH ×4 (00:15→13:52)
[2016-05-13] MEDS: PERICOLACE PO SCH ×2 (00:16→08:52)
[2016-05-13] MEDS: ZOCOR PO SCH (00:16)
[2016-05-13] MEDS: PROTONIX PO SCH ×2 (00:16→08:52)
[2016-05-13] MEDS: HUMALOG SUBQ SCH ×2 (07:02→11:33)
[2016-05-13 07:37] LABS: CALCIUM 8.6 mg/dL (8.8-10.2); POTASSIUM 3.6 mmol/L (3.5-5.1)
[2016-05-13] MEDS: CELEXA PO SCH (08:52)
[2016-05-13] MEDS: ARICEPT PO SCH (08:52)
[2016-05-13] MEDS: COREG PO SCH (08:52)
--- NOTE | 2016-05-13 10:48 | PROGRESS NOTE ---
DATE: 05/13/2016 SUBJECTIVE: The patient is resting comfortably in bed. He has no complaints today. No acute events noted overnight. OBJECTIVE: Vital Signs: Temperature 98 degrees, blood pressure 121/54, heart rate 59, respirations 15, O2 saturation is 93% on room air. General: This is an elderly male, lying in bed in no acute distress. Head: Normocephalic and atraumatic. Heart: S1, S2. Normal. Bradycardic. Lungs clear to auscultation bilaterally. No wheezes. No rales. No rhonchi. Abdomen is positive bowel sounds soft, nontender, nondistended. Extremities: No edema. No cyanosis. No calf tenderness. Neurologic: The patient is alert and oriented. LABORATORY DATA: Labs reviewed. ASSESSMENT AND PLAN: 1. Gastrointestinal bleed secondary to a large duodenal ulcer, stable. Continue on Carafate and Protonix. 2. Urinary tract infection secondary to the extended spectrum beta-lactamase Escherichia coli. Continue on the current IV antibiotic regimen as directed by Dr. Butler. The patient has a PICC line and will continue this antibiotic at rehab. 3. Dyslipidemia. Continue on Zocor. 4. Diabetes mellitus, type 2. Continue on sliding scale insulin. 5. Dementia, aware. Continue on Aricept. 6. Chronic atrial fibrillation, aware. The patient is currently rate controlled. The patient cannot be placed on anticoagulation due to the GI bleed that occurred during this hospitalization. 7. Chronic systolic congestive heart failure, stable. DISPOSITION: The patient is stable for discharge to rehab. community services manager is currently working on rehab placement. cc: Virginia Cruz MD
[2016-05-13] MEDS: INVANZ 1 GM/NS 50 ML IV SCH (11:46)
--- NOTE | 2016-05-13 13:10 | DISCHARGE SUMMARY ---
ADMISSION DATE: 05/06/2016 DISCHARGE DATE: 05/13/2016 CONSULTATIONS: 1. Dr. Dobbins with Gastroenterology. 2. Dr. Rafael Butler with Infectious Disease. PERTINENT PROCEDURES: 1. Abdominal x-ray was nonspecific. 2. EGD performed by Dr. Dobbins showed giant duodenal ulcer and gastritis. 3. Renal ultrasound was normal. 4. PICC line placement on 05/12/2016. DISCHARGE DIAGNOSES: 1. Gastrointestinal bleed secondary to a large duodenal ulcer, stable. 2. Urinary tract infection secondary to ESBL E. coli. 3. Dyslipidemia. 4. Diabetes mellitus type 2. 5. Dementia, aware, on Aricept. 6. Chronic atrial fibrillation 7. Chronic systolic congestive heart failure HOSPITAL COURSE: Briefly, Mr. Lovell is an 80-year-old male with a history of bladder cancer status post cystectomy, currently has a urostomy. He is admitted for a UTI and possible cholelithiasis that has since been ruled out. The patient also reported an increase in weakness. The patient had seen his primary care physician, Dr. Bert Sharpe, on the day of his admission. He was diagnosed with a UTI and placed on Bactrim. The patient reported to the ED after falling when walking with his walker due to weakness. The patient also reported dark stools recently with epigastric pain as well as nausea, did report vomiting emesis that did have a coffee-ground appearance. The patient was admitted for a GI bleed with a GI consult. He was placed on a Protonix drip. His Eliquis was stopped. We monitored serial hemoglobins and hematocrits. He was also placed on IV antibiotics for his UTI. He did undergo an EGD with Dr. Dobbins that showed a large duodenal ulcer and gastritis. He was continued on PPIs, and we monitored his hemoglobin and hematocrit closely. Per Dr. Dobbins's recommendations, we are going to avoid starting him back on Eliquis for at least a week or more. The patient's urine culture grew out ESBL E. coli UTI. Dr. Rafael Butler was consulted. The patient also worked with PT, and due to his weakness, he will be going to rehab at [facility]. PICC line was placed. The patient will continue with IV antibiotics while at rehab. He will be continued on ertapenem 1 g IV q.24 h. for 9 more days for a 14-day total treatment. After that antibiotic is done, the patient's PICC line can also be removed at that time. Hazmat Truck Driver has found placement for the patient at [facility]. He is appropriate for discharge today. VITAL SIGNS: Temperature is 98, heart rate 59, respirations 15, blood pressure 121/54, O2 is 93% on room air. DISCHARGE DIET: Diabetic. DISCHARGE MEDICATIONS: 1. Coreg 3.125 mg p.o. b.i.d. 2. Celexa 40 mg p.o. daily. 3. Aricept 10 mg p.o. daily. 4. Invanz 1 g IV q.24 h. 5. Glyburide 5 mg p.o. b.i.d. 6. Icar-C Plus one each p.o. b.i.d. 7. Metformin 1000 mg p.o. b.i.d. 8. Protonix 40 mg p.o. b.i.d. 9. Colace one each p.o. b.i.d. 10.Zocor 40 mg p.o. at bedtime. 11.Carafate liquid 1 g p.o. q.6 h. FOLLOWUP: The patient is being discharged to [facility] where he will continue with his IV antibiotics. After that is complete, his PICC line can be discontinued. The patient will need to follow up with his primary care physician, Bert Sharpe, as well as Dr. Dobbins, to see about when he can restart his home Eliquis due to his chronic atrial fibrillation. The patient can return to the ED for any worsening of symptoms. Discharge time greater than 30 minutes. Dictated by LEIDY Qureshi for Virginia Cruz MD cc: MD Bert Pham MD MTDD
--- NOTE | 2016-05-13 13:46 | PROGRESS NOTE ---
DATE: 05/13/2016 SUBJECTIVE: Patient is sitting in a chair. He has plans to be discharged to [facility] today. Discharge nurse is working on the paperwork with him. He denies complaints. Denies any active bleeding. OBJECTIVE: Vital signs: Temperature 98.0, pulse 59, respirations 15, blood pressure 121/54. LABORATORY: Hematology: White count 5.0, hemoglobin 10.5, hematocrit 33.6, MCV 88.2, platelets 272. Chemistry: Sodium 138, potassium 3.6, chloride 102, CO2 24, BUN 14, creatinine 1.2, glucose 138, calcium 8.6, phosphorus 3.4, magnesium 1.9. ASSESSMENT AND PLAN: 1. Gastrointestinal bleed, resolved. 2. Large duodenal ulcer. Continue proton pump inhibitor and Carafate once discharged. 3. Urinary tract infection. Beta-lactamase Escherichia coli. Continue on IV antibiotics once discharged. He has had a PICC line placed and will continue antibiotics at [facility]. 4. Chronic atrial fibrillation. Currently anticoagulation is on hold due to his recent gastrointestinal bleed. PLAN: Continue supportive care. Again, continue proton pump inhibitor and Carafate once discharged. Recommended to follow up with Dr. Dobbins in about two to three weeks or whenever he gets out of rehabilitation unless needed sooner. Patient and family voiced understanding of this plan. Dictated by LEIDY Tilley for Frantz Dobbins MD cc: LEIDY Packer MD
[2016-05-13 14:18] VITALS: BP 113/73
== END 2016-05-13 15:19 ==
LOC: EDBD → ED 22:00 → SUATTDRO 05-06 03:44 → 3N 05-06 03:44 → EDIPHOLD 05-06 03:44 → 3N 05-09 12:01
PROVIDERS: ATTEND Internal Medicine